=== PATIENT | female | born 1945 | race Caucasian/White ===

== ENCOUNTER 2018-10-26 13:31 | Outpatient (CLI) | payer MEDICARE, BC | END 2018-10-26 13:32 | disposition short-term general hospital (02) | LOC: EMS 13:31 | PROVIDERS: ATTEND Surgery | DX: R07.9 Chest pain, unspecified (principal); R06.02 Shortness of breath; R42 Dizziness and giddiness; R61 Generalized hyperhidrosis | CPT/HCPCS: A0425; A0427 ==

== ENCOUNTER 2019-01-10 09:24 | Outpatient (CLI) | payer MEDICARE, BC ==
[2019-01-10 10:57] LABS: ALBUMIN 3.9 g/dL (3.2-5.5); ALKALINE PHOSPHATASE 55 IU/L (42-121); ALT ALANINE AMINOTRANSFERASE 15 IU/L (10-60); AST ASPARTATE AMINOTRANSFERASE 20 IU/L (10-42); BILIRUBIN,TOTAL 0.5 mg/dL (0.2-1.0); BUN - BLOOD UREA NITROGEN 17 mg/dL (6-20); CALCIUM 9.4 mg/dL (8.5-10.3); CARBON DIOXIDE - CO2 26 mmol/L (21-32); CHLORIDE 105 mmol/L (101-111); CHOL/HDL RATIO 5.1 (<4.4); CHOLESTEROL 182 mg/dL; CREATININE 0.7 mg/dL (0.4-1.0); GFR - MDRD 82 (>89); GLUCOSE 182 mg/dL (70-100); HDL CHOLESTEROL 36 mg/dL; LDL CHOLESTEROL,CALCULATED 109 mg/dL; MAGNESIUM 1.9 mg/dL (1.7-2.8); SODIUM 143 mmol/L (135-145); TOTAL PROTEIN 7.7 g/dL (6.7-8.2); VLDL CHOLESTEROL 37 mg/dL
[2019-01-10 10:58] LABS: BASOPHILS # (AUTO) 0.1 10^3/uL (0.0-0.1); BASOPHILS % (AUTO) 0.7 %; EOSINOPHILS # (AUTO) 0.1 10^3/uL (0.0-0.7); EOSINOPHILS % (AUTO) 1.3 %; HGB - HEMOGLOBIN 14.5 g/dL (12.0-16.0); LYMPHOCYTES # (AUTO) 1.6 10^3/uL (1.5-3.5); MEAN CORPUSCULAR HEMOGLOBIN 29.6 pg (27.0-31.0); MEAN CORPUSCULAR HGB CONC 33.3 g/dL (32.0-36.0); MEAN PLATELET VOLUME 10.3 fL (7.9-10.8); MONOCYTES # (AUTO) 0.6 10^3/uL (0.0-1.0); MONOCYTES % (AUTO) 5.9 %; NEUTROPHILS # (AUTO) 7.5 10^3/uL (1.5-6.6); NEUTROPHILS % (AUTO) 75.8 %; PLT - PLATELET COUNT 284 10^3/uL (130-450); RED CELL DISTRIBUTION WIDTH 13.7 % (12.0-15.0); WHITE BLOOD COUNT 9.9 x10^3/uL (4.8-10.8)
[2019-01-10 11:24] LABS: HB2 TOTAL 15.7 g/dL; HEMOGLOBIN A1C 0.86 g/dL; HEMOGLOBIN A1C % 7.2 % (4.6-6.2)
== END 2019-01-10 09:25 | disposition home or self-care (01) ==
LOC: LAB 09:24
PROVIDERS: ATTEND Family Medicine
DX: E11.65 Type 2 diabetes mellitus with hyperglycemia (principal); E66.9 Obesity, unspecified; I10 Essential (primary) hypertension; K21.0 Gastro-esophageal reflux disease with esophagitis; N20.0 Calculus of kidney
CPT/HCPCS: 36415; 80053; 80061; 83036; 83721; 83735; 85025

== ENCOUNTER 2019-02-10 15:17 | Outpatient (CLI) | payer MEDICARE, BC ==
--- NOTE | 2019-02-11 13:53 | XRAY Report ---
Reason: ESSENTIAL PRIMARY HYPERTENSION, ACUTE SINUSITIS Procedure Date: 02/10/2019 Accession Number: [id number] / [id number] Procedure: XR - Chest 2 View X-Ray CPT Code: 76816 Final Report FULL RESULT: EXAM: CHEST RADIOGRAPHY EXAM DATE: 02/10/2019 03:27 PM. CLINICAL HISTORY: ESSENTIAL PRIMARY HYPERTENSION, ACUTE SINUSITIS. COMPARISON: CHEST 2 VIEW PA/LAT 11/18/2013 3:13 AM. TECHNIQUE: 2 views. FINDINGS: Lungs/Pleura: No focal opacities evident. No pleural effusion. No pneumothorax. Normal volumes. Mediastinum: Heart and mediastinal contours are unremarkable. Other: None. IMPRESSION: Normal 2-view chest radiography. RADIA
--- NOTE | 2019-02-11 13:59 | XRAY Report ---
Reason: ESSENTIAL (PRIMARY) HYPERTENSION,ACUTE SINUSITIS, Procedure Date: 02/10/2019 Accession Number: [id number] / [id number] Procedure: XR - Sinus Complete CPT Code: Final Report FULL RESULT: EXAM: SINUS RADIOGRAPHY EXAM DATE: 02/10/2019 03:52 PM. CLINICAL HISTORY: ESSENTIAL (PRIMARY) Hypertension, acute SINUSITIS. COMPARISONS: XR SINUSES COMPLETE MIN 3 VIEWS 08/23/2009 10:58 AM HEAD W/O 11/16/2013 8:24 PM. TECHNIQUE: 4 views. FINDINGS: Bones: Normal. No fractures or bone lesions. Sinuses: Normal. No opacities or fluid levels. Mastoid Air Cells: Clear. Other: Normal. No soft tissue swelling. IMPRESSION: Grossly negative sinus radiography. If there is continued clinical concern, consider CT. RADIA
== END 2019-02-10 15:18 | disposition home or self-care (01) ==
LOC: DI 15:17
PROVIDERS: ATTEND Family Medicine
DX: I10 Essential (primary) hypertension (principal); J01.90 Acute sinusitis, unspecified
CPT/HCPCS: 70220; 71046

== ENCOUNTER 2019-02-25 15:04 | Emergency (ER) | payer MEDICARE, BC ==
[2019-02-25 15:34] VITALS: BP 111/81
[2019-02-25] MEDS ORDERED: ACETAMINOPHEN 500 MG TABLET PO STA (15:42)
--- NOTE | 2019-02-25 16:19 | XRAY Report ---
Reason: Trauma Procedure Date: 02/25/2019 Accession Number: [id number] / [id number] Procedure: XR - Ankle 3 View LT CPT Code: Final Report FULL RESULT: EXAM: LEFT ANKLE RADIOGRAPHY EXAM DATE: 02/25/2019 03:50 PM. CLINICAL HISTORY: Trauma. Patient fell and heard audible pop. History of prior lateral malleolar fracture. COMPARISON: None. TECHNIQUE: 3 views. FINDINGS: Bones: Acute medial malleolar fracture with 3 mm displacement. Distal left fibular metaphyseal deformity related to old, healed fracture. Joints: Normal. No effusion. No subluxations. The ankle mortise is normally aligned. Soft Tissues: Diffuse soft tissue swelling extending into dorsal midfoot. IMPRESSION: 1. Acute medial malleolar fracture with 3 mm displacement. 2. Distal left fibular metaphyseal deformity related to old, healed fracture. 3. Diffuse left ankle soft tissue swelling extending into the dorsal midfoot. RADIA
--- NOTE | 2019-02-25 16:30 | ED Physician Documentation ---
PD HPI LOWER EXT INJURY - Stated complaint Stated Complaint: L ANKLE INJ - Chief complaint Chief Complaint: Ext Problem - History obtained from History obtained from: Patient - History of Present Illness PD HPI LOW EXT INJURY LOCATION: Left, Ankle Type of injury: Fall (slipped and fell with twisting of left ankle. Crum Lynne a pop as she fell. Pain and unable to bear weight since the injury.) Timing - onset: Today (just [employer]) Worsened by: Moving, Palpating Associated symptoms: Swelling. No: Weakness, Numbness Similar symptoms before: Diagnosis (had fracture lateral malleolus about a year ago or so, healed okay with out having any limp or limitation.) Recently seen: Not recently seen Review of Systems Skin: denies: Abrasion (s), Laceration (s) Neurologic: denies: Focal weakness, Numbness, Altered mental status, Headache, Head injury, LOC PD PAST MEDICAL HISTORY - Past Medical History Cardiovascular: Hypertension Respiratory: Sleep apnea, CPAP use Endocrine/Autoimmune: Type 1 diabetes GI: None : Kidney stones, Other HEENT: None Psych: None Musculoskeletal: None Derm: None - Past Surgical History Past Surgical History: Yes /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: Hysterectomy HEENT: Tonsil/Adenoidectomy - Present Medications Home Medications: Ambulatory Orders Medication Instructions Recorded Confirmed Azilsartan Medoxomil [Edarbi] 80 mg PO DAILY 11/15/13 11/10/15 Metformin HCl 500 mg PO BID 11/15/13 11/10/15 Oxycodone HCl/Acetaminophen 1 - 2 each PO Q6H PRN #15 tablet 11/15/13 11/10/15 [Percocet 5-325 mg Tablet] Potassium Citrate [Urocit-K] 10 meq PO BID 11/15/13 11/10/15 Saxagliptin HCl [Onglyza] 5 mg PO DAILY 11/15/13 11/10/15 Tamsulosin [Flomax] 0.4 mg PO DAILY #7 capsule 11/10/15 levoFLOXacin [Levaquin] 25 mg 11/10/15 oxyCODONE/ACET 5/325 [Percocet 5 1 - 2 tab PO Q4-6H PRN #20 tablet 11/10/15 mg/325 mg] Hydrocodone/Acetaminophen 1 - 2 each PO Q6H PRN #20 tablet 02/25/19 [Hydrocodon-Acetaminophen 5-325] Naproxen 500 mg PO BID #20 tablet 02/25/19 - Allergies Allergies/Adverse Reactions: Allergies Allergy/AdvReac Type Severity Reaction Status Date / Time No Known Drug Allergies Allergy Verified 11/10/15 07:57 - Social History Does the pt smoke?: No Smoking Status: Former smoker Does the pt drink ETOH?: No Does the pt have substance abuse?: No - Immunizations Immunizations are current?: Yes PD ED PE NORMAL - Vitals Vital signs reviewed: Yes - General General: Alert and oriented X 3, No acute distress, Well developed/nourished - HEENT HEENT: Atraumatic - Neck Neck: No bony TTP - Derm Derm: Normal color, Warm and dry - Extremities Extremities: Other (left ankle with tenderness and some swelling both medial and laterally. Achilles is intact. Tender diffusely around ankle. Good color and cap refill in toes. ) - Neuro Neuro: Alert and oriented X 3, No motor deficit, Normal speech Results - Vitals Vitals: Vital Signs - 24 hr 02/25/19 15:30 Temperature 36.7 C Heart Rate 89 Respiratory 18 Rate Blood Pressure 111/81 H O2 Saturation 96 Oxygen O2 Source [Without Activity] Room air O2 Source Room air - Rads (name of study) left ankle Radiology: Prelim report reviewed, See rad report (fracture medial malleolus. Prior fracture laterally noted healed. ) PD MEDICAL DECISION MAKING - ED course Complexity details: reviewed results, considered differential (has medial fracture and apparent healed lateral fib fracture. Is tender around whole ankle. Slight wiggle with stress testing, suggests disruption lateral ligaments. ), d/w patient ED course: she saw Ortho in [place] for other ankle fracture, so she is encouraged to follow up with him. Departure - Departure Disposition: 01 Home, Self Care Clinical Impression: Fractured medial malleolus Qualifiers: Encounter type: initial encounter Fracture type: closed Fracture alignment: nondisplaced Laterality: left Qualified Code(s): S82.55XA - Nondisplaced fracture of medial malleolus of left tibia, initial encounter for closed fracture Condition: Stable Record reviewed to determine appropriate education?: Yes Instructions: ED Fx Ankle General Follow-Up: Bill Montanez MD [Physician No Access] - Prescriptions: Hydrocodone/Acetaminophen [Hydrocodon-Acetaminophen 5-325] 1 - 2 each PO Q6H PRN #20 tablet PRN Reason: pain Naproxen 500 mg PO BID #20 tablet Comments: We will do no weightbearing with the ankle fracture. Use crutches or knee scooter to be off of the foot. Have the boot orthosis on all the time as you would for cast. (He can remove it for changing socks or cleaning the skin briefly). Elevate rest and ice the ankle often over the next several days to minimize swelling. Use some anti-inflammatories such as naproxen or ibuprofen 2-3 times a day. To that add Tylenol or hydrocodone as needed for pain. Call Dr. Montanez's office tomorrow for follow-up on this ankle fracture. They likely will give you an appointment for early next week and that timeframe is fine. Your ankle might need surgery to stabilize the loose piece (a pin or screw). Often they will allow the swelling to go down and do the surgery in a week or more after the injury so the follow-up time is adequate. Discharge Date/Time: 02/25/19 17:18
[2019-02-25] MEDS ORDERED: IBUPROFEN 600 MG TABLET PO STA (16:51)
== END 2019-02-25 17:18 | disposition home or self-care (01) ==
LOC: ED 15:04
DX: S82.55XA Nondisplaced fracture of medial malleolus of left tibia, initial encounter for closed fracture (principal); W01.0XXA Fall on same level from slipping, tripping and stumbling without subsequent striking against object, initial encounter; I10 Essential (primary) hypertension; E10.9 Type 1 diabetes mellitus without complications; Z87.891 Personal history of nicotine dependence
CPT/HCPCS: 73610; 99283; 99284; A9270

== ENCOUNTER 2020-11-20 15:12 | Outpatient (CLI) | payer MEDICARE, BC ==
--- NOTE | 2020-11-20 17:09 | XRAY Report ---
PROCEDURE: Lumbar Spine 2 View INDICATIONS: BACK PAIN TECHNIQUE: 2 views of the lumbar spine were acquired. COMPARISON: 02/28/2013 and KUB dated 11/10/2015. Chest radiograph dated 02/10/2019. FINDINGS: Bones: 5 [id number] vertebrae are present. Age indeterminant anterior wedge compression deformi ty involving L1 vertebral body is noted with up to 25% loss of L1 vertebral body height anteriorly. M inimal retrolisthesis of L2 on L3 and grade 1 anterolisthesis of L3 on L4 and L4 on L5 is seen. Degen erative disc disease and bilateral facet arthrosis throughout lumbar spine is seen more prominent at L4-5 and L5-S1 levels. No suspicious bony lesions. Soft tissues: Overlying bowel gas pattern is normal. No suspicious soft tissue calcifications. IMPRESSION: 1. Age-indeterminate indeterminant anterior wedge compression deformity at L1 level new since 2019 st udy with up to 25% loss of L1 vertebral body height anteriorly. 2. Spondylolisthesis at L2-3 through L4-5 levels as described above. Degenerative disc disease throug hout lumbar spine more prominent at L4-5 and L5-S1 levels. Reviewed by: Michoacano Quiroz MD on 11/20/2020 5:08 PM PDT Approved by: Michoacano Quiroz MD on 11/20/2020 5:08 PM PDT Station ID: [id number]
--- NOTE | 2020-11-20 17:10 | XRAY Report ---
PROCEDURE: Chest 2 View X-Ray INDICATIONS: HTN TECHNIQUE: 2 view(s) of the chest. COMPARISON: None. FINDINGS: Surgical changes and devices: None. Lungs and pleura: No pleural effusions or pneumothorax. Lungs are clear. Mediastinum: Mildly tortuous thoracic aorta is seen. Heart size is enlarged. Bones and chest wall: No suspicious bony abnormalities. Soft tissues appear unremarkable. IMPRESSION: Mild cardiomegaly and mildly tortuous thoracic aorta. No acute cardiopulmonary pathology . Reviewed by: Michoaacno Quiroz MD on 11/20/2020 5:08 PM PDT Approved by: Michoacano Quiroz MD on 11/20/2020 5:08 PM PDT Station ID: [id number]
== END 2020-11-20 15:13 | disposition home or self-care (01) ==
LOC: DI 15:12
PROVIDERS: ATTEND Family Medicine
DX: M54.5 Low back pain (principal); M43.16 Spondylolisthesis, lumbar region; M51.36 Other intervertebral disc degeneration, lumbar region; M48.56XA Collapsed vertebra, not elsewhere classified, lumbar region, initial encounter for fracture; I10 Essential (primary) hypertension; Q25.46 Tortuous aortic arch

== ENCOUNTER 2021-06-25 13:35 | Outpatient (CLI) | payer MEDICARE, BC ==
[2021-06-25 13:48] LABS: HCT - HEMATOCRIT 43.4 % (37.0-47.0); HGB - HEMOGLOBIN 14.7 g/dL (12.0-16.0); MEAN CORPUSCULAR HEMOGLOBIN 29.6 pg (27.0-31.0); MEAN CORPUSCULAR HGB CONC 33.9 g/dL (32.0-36.0); MEAN CORPUSCULAR VOLUME 87.5 fL (81.0-99.0); MEAN PLATELET VOLUME 9.6 fL (7.9-10.8); RED BLOOD COUNT 4.96 10^6/uL (4.20-5.40); RED CELL DISTRIBUTION WIDTH 13.6 % (12.0-15.0)
[2021-06-25 14:04] LABS: CREATININE 0.8 mg/dL (0.4-1.0)
== END 2021-06-25 13:36 | disposition home or self-care (01) ==
LOC: LAB 13:35
PROVIDERS: ATTEND Internal Medicine
DX: I48.0 Paroxysmal atrial fibrillation (principal)
CPT/HCPCS: 36415; 82565; 85027

== ENCOUNTER 2021-07-05 11:45 | Outpatient (CLI) | payer MEDICARE, BC ==
[2021-07-05 12:14] LABS: BILIRUBIN,URINE NEGATIVE (NEGATIVE); GLUCOSE, URINE (UA) NEGATIVE (NEGATIVE); KETONES,URINE (UA) NEGATIVE (NEGATIVE); LEUKOCYTE ESTERASE, URINE SMALL (NEGATIVE); NITRITE,URINE POSITIVE (NEGATIVE); OCCULT BLOOD,URINE SMALL (NEGATIVE); PH,URINE 6.5 PH (5.0-7.5); PROTEIN,URINE 100 mg/dL (NEGATIVE); UROBILINOGEN,URINE 0.2 (NORMAL) E.U./dL (NORMAL)
[2021-07-05 12:16] LABS: CLARITY,URINE CLOUDY (CLEAR)
[2021-07-05 12:30] LABS: BACTERIA,URINE Moderate /HPF (None Seen); RBC,URINE 0-5 /HPF (0-5); SQUAMOUS EPITHELIAL CELL,UR FEW Squamous (<= Few); WBC CLUMPS,URINE PRESENT; WBC,URINE >25 /HPF (0-5)
== END 2021-07-05 11:46 | disposition home or self-care (01) ==
LOC: LAB 11:45
PROVIDERS: ATTEND Family Medicine
DX: N39.0 Urinary tract infection, site not specified (principal); R30.0 Dysuria
CPT/HCPCS: 81001; 87077; 87086; 87181

== ENCOUNTER 2021-09-05 11:36 | Outpatient (CLI) | payer MEDICARE, BC ==
[2021-09-05 11:52] LABS: BILIRUBIN,URINE NEGATIVE (NEGATIVE); GLUCOSE, URINE (UA) NEGATIVE (NEGATIVE); KETONES,URINE (UA) NEGATIVE (NEGATIVE); LEUKOCYTE ESTERASE, URINE NEGATIVE (NEGATIVE); NITRITE,URINE NEGATIVE (NEGATIVE); OCCULT BLOOD,URINE TRACE-INTA (NEGATIVE); PROTEIN,URINE NEGATIVE (NEGATIVE); UROBILINOGEN,URINE 0.2 (NORMAL) E.U./dL (NORMAL)
[2021-09-05 11:58] LABS: CLARITY,URINE CLEAR (CLEAR)
[2021-09-05 12:31] LABS: BACTERIA,URINE Few /HPF (None Seen); CASTS, URINE 0-2 Hyaline Casts /LPF; RBC,URINE None Seen /HPF (0-5); SQUAMOUS EPITHELIAL CELL,UR FEW Squamous (<= Few); STARCH,URINE PRESENT; WBC,URINE 0-3 /HPF (0-5)
== END 2021-09-05 11:37 | disposition home or self-care (01) ==
LOC: LAB 11:36
PROVIDERS: ATTEND Family Medicine
DX: N34.0 Urethral abscess (principal); R30.0 Dysuria
CPT/HCPCS: 81001; 87086

== ENCOUNTER 2021-10-03 12:53 | Outpatient (CLI) | payer MEDICARE, BC ==
[2021-10-03 13:16] LABS: BASOPHILS % (AUTO) 0.4 %; EOSINOPHILS % (AUTO) 0.4 %; HCT - HEMATOCRIT 42.9 % (37.0-47.0); HGB - HEMOGLOBIN 14.9 g/dL (12.0-16.0); LYMPHOCYTES # (AUTO) 1.9 10^3/uL (1.5-3.5); LYMPHOCYTES % (AUTO) 19.4 %; MEAN CORPUSCULAR HEMOGLOBIN 29.9 pg (27.0-31.0); MEAN CORPUSCULAR HGB CONC 34.7 g/dL (32.0-36.0); MEAN CORPUSCULAR VOLUME 86.1 fL (81.0-99.0); MEAN PLATELET VOLUME 9.8 fL (7.9-10.8); MONOCYTES # (AUTO) 0.6 10^3/uL (0.0-1.0); MONOCYTES % (AUTO) 5.8 %; NEUTROPHILS # (AUTO) 7.3 10^3/uL (1.5-6.6); NEUTROPHILS % (AUTO) 73.8 %; PLT - PLATELET COUNT 252 10^3/uL (130-450); RED BLOOD COUNT 4.98 10^6/uL (4.20-5.40); RED CELL DISTRIBUTION WIDTH 13.8 % (12.0-15.0)
[2021-10-03 13:32] LABS: ALBUMIN 4.1 g/dL (3.2-5.5); ALBUMIN/GLOBULIN RATIO 1.1 (1.0-2.2); ALKALINE PHOSPHATASE 48 IU/L (42-121); ALT ALANINE AMINOTRANSFERASE 18 IU/L (10-60); AST ASPARTATE AMINOTRANSFERASE 19 IU/L (10-42); BILIRUBIN,TOTAL 0.5 mg/dL (0.2-1.0); BUN - BLOOD UREA NITROGEN 19 mg/dL (6-20); CARBON DIOXIDE - CO2 27 mmol/L (21-32); CHLORIDE 103 mmol/L (101-111); CHOLESTEROL 170 mg/dL; CREATININE 0.9 mg/dL (0.4-1.0); GFR - MDRD 61 (>89); GLUCOSE 150 mg/dL (70-100); HDL CHOLESTEROL 42 mg/dL; LDL CHOLESTEROL,CALCULATED 98 mg/dL; LDL/HDL RATIO 2.3 (<4.4); POTASSIUM 3.9 mmol/L (3.5-5.0); SODIUM 142 mmol/L (135-145); TOTAL PROTEIN 7.9 g/dL (6.7-8.2); TRIGLYCERIDES 151 mg/dL; VLDL CHOLESTEROL 30 mg/dL
[2021-10-03 13:40] LABS: T4 (THYROXINE) 8.29 ug/dL (6.09-12.23)
[2021-10-03 13:43] LABS: THYROID STIMULATING HORMONE 0.82 uIU/mL (0.34-5.60)
== END 2021-10-03 12:54 | disposition home or self-care (01) ==
LOC: LAB 12:53
PROVIDERS: ATTEND Family Medicine
DX: I10 Essential (primary) hypertension (principal); E11.65 Type 2 diabetes mellitus with hyperglycemia; F32.1 Major depressive disorder, single episode, moderate; I25.10 Atherosclerotic heart disease of native coronary artery without angina pectoris; Z79.899 Other long term (current) drug therapy
CPT/HCPCS: 36415; 80053; 80061; 82306; 82607; 83721; 84436; 84443; 85025

== ENCOUNTER 2021-12-17 09:18 | Emergency (ER) | payer MEDICARE, BC ==
--- OUTSIDE RECORDS SUMMARY | 2021-12-17 09:39 | EXTERNAL MEDICAL SUMMARY RPT | Continuity of Care Document ---
:1945 Author Organization [facility] Address [address] [place] [address] Phone Allergies No information. Encounters No information. Functional Status No information. Immunizations No information. Medications No information. Problems No information. Procedures No information. Results/Labs test date author facility value unit interpret ation Result panel 1 (unknown) (no (unknown) (unknown) (no value) (units (unk nown) date) unknown) (unknown) (no (unknown) (unknown) [address] [place] [address] (units (unknown) date) unknown) (unknown) (no (unknown) (unknown) [place], [place] (units ( unknown) date) [id number] unknown) (unknown) (no (unknown) (unknown) [facility] (units (unknown) date) unknown) (unknown) (no (unknown) (unknown) Signed (units (unkno wn) date) unknown) (unknown) (no (unknown) (unknown) Ultrasound (units (unk nown) date) Report unknown) (unknown) (no (unknown) (unknown) (no value) (units (unk nown) date) unknown) (unknown) (no (unknown) (unknown) 10/16/21 (units (unkno wn) date) unknown) (unknown) (no (unknown) (unknown) Approved by: (units (u nknown) date) evita Chaudhari M.D. on 10/16/2021 at 16:55 (unknown) (no (unknown) (unknown) Bilateral simple (units (unknown) date) renal cysts unknown) without hydronephrosis (unknown) (no (unknown) (unknown) Bladder: (units (unkno wn) date) Pre-void bladder unknown) volume is 94 mL. Post-void residual is 74 mL. Pre- (unknown) (no (unknown) (unknown) COMPARISON: (units (un known) date) None. unknown) (unknown) (no (unknown) (unknown) FINDINGS: (units (unkn own) date) unknown) (unknown) (no (unknown) (unknown) IMPRESSION: (units (un known) date) unknown) (unknown) (no (unknown) (unknown) INDICATIONS: (units (u nknown) date) OVERACTIVE unknown) BLADDER/NEPHROLIT HIASIS (unknown) (no (unknown) (unknown) Kidneys: (units (unkno wn) date) Kidneys are unknown) normal in size. Right kidney measures 13.0 cm long; left (unknown) (no (unknown) (unknown) Miscellaneous: (units (unknown) date) No free pelvic unknown) fluid. (unknown) (no (unknown) (unknown) Nonobstructive (units (unknown) date) left renal unknown) calculus, 1.4 cm (unknown) (no (unknown) (unknown) On the left, (units (u nknown) date) there is a 2.0 cm unknown) simple cyst as well as a 1.5 cm simple cyst. (unknown) (no (unknown) (unknown) On the right, (units ( unknown) date) there is a simple unknown) cyst measuring 1.2 x 1.1 cm of the lower pole. (unknown) (no (unknown) (unknown) Real-time (units (unkn own) date) scanning was unknown) performed of the kidneys and bladder, with image (unknown) (no (unknown) (unknown) TECHNIQUE: (units (unk nown) date) unknown) (unknown) (no (unknown) (unknown) gravity between (units (unknown) date) ureteral and unknown) bladder urine). (unknown) (no (unknown) (unknown) images (units (unkno wn) date) demonstrate no unknown) intraluminal masses or stones. On pre-void images, (unknown) (no (unknown) (unknown) measures 13.0 cm (units (unknown) date) long. Right unknown) renal cortical thickness is 2.1 cm; left renal (unknown) (no (unknown) (unknown) not be (units (unkno wn) date) detectable in up unknown) to 25% of cases due to insufficient differences in (unknown) (no (unknown) (unknown) obstructive (units (un known) date) calculus noted in unknown) the inferior pole left kidney measuring 1.4 x 1.2 (unknown) (no (unknown) (unknown) thickness is 2.2 (units (unknown) date) cm. unknown) (unknown) (no (unknown) (unknown) ureteral jets (units ( unknown) date) are noted with unknown) color Doppler interrogation. (Of note, ureteral (unknown) (no (unknown) (unknown) [id number] (units (unkn own) date) unknown) (unknown) (no (unknown) (unknown) Accession (units (unkn own) date) Number: unknown) [id number] (unknown) (no (unknown) (unknown) Age/Sex: 76 / F (units (unknown) date) Date of unknown) Service: (unknown) (no (unknown) (unknown) : 1945 (units (unknown) date) Acct:[id number] unknown) (unknown) (no (unknown) (unknown) Loc: [place] (units (unkno wn) date) unknown) (unknown) (no (unknown) (unknown) Non (units (unkno wn) date) unknown) (unknown) (no (unknown) (unknown) Ordering (units (unkno wn) date) Provider: unknown) Annika West MD (unknown) (no (unknown) (unknown) PROCEDURE: US (units (unknown) date) RENAL COMPLETE unknown) (unknown) (no (unknown) (unknown) Patient: (units (unkno wn) date) Trinidad Campos E unknown) MR#: [id number] (unknown) (no (unknown) (unknown) Procedure: US (units ( unknown) date) renal complete unknown) (unknown) (no (unknown) (unknown) bilateral (units (unkn own) date) unknown) (unknown) (no (unknown) (unknown) cm (units (unkno wn) date) unknown) (unknown) (no (unknown) (unknown) cortical (units (unkno wn) date) unknown) (unknown) (no (unknown) (unknown) documentation. (units (unknown) date) unknown) (unknown) (no (unknown) (unknown) jets may (units (unkno wn) date) unknown) (unknown) (no (unknown) (unknown) kidney (units (unkno wn) date) unknown) (unknown) (no (unknown) (unknown) specific (units (unkno wn) date) unknown) (unknown) (no (unknown) (unknown) void (units (unkno wn) date) unknown) Social History No information. Vital Signs No information.
--- NOTE | 2021-12-17 09:53 | ED Physician Documentation ---
PD HPI DYSPNEA - Stated complaint Stated Complaint: SOA - Chief complaint Chief Complaint: Resp - History obtained from History obtained from: Patient - History of Present Illness Timing - onset: How many weeks ago (2-3 weeks of cough, dyspnea, and easy fatigue. No leg edema. Does have some orthopnea. Nonproductive cough. Saw PMD and got Rx Keflex and codeine cough medication.) Timing - onset during: Light activity. No: Eating Timing - duration: Weeks Timing - details: Gradual onset, Still present Inciting event(s): No: URI Improved by: Rest. No: Inhaler/neb (given budesonie and salmeterol inhaler and pt not feeling immediate relief with this.) Worsened by: Exertion, Laying flat, Coughing Associated symptoms: Cough. No: Fever, Wheezing, Chest pain / discomfort, Bilateral edema Similar symptoms before: Has not had sx before Recently seen: Clinic Review of Systems Constitutional: denies: Fever, Chills Respiratory: reports: Dyspnea, Cough. denies: Wheezing GI: denies: Abdominal Pain, Nausea, Vomiting Neurologic: reports: Generalized weakness. 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 HEENT: Tonsil/Adenoidectomy - Present Medications Home Medications: Ambulatory Orders Medication Instructions Recorded Confirmed Albuterol Sulf [Ventolin Hfa 2 puffs INH QID 10 Days #1 gm 12/17/21 Inhaler] Apixaban [Eliquis] 5 mg PO DAILY 12/17/21 12/17/21 Benzonatate [Tessalon] 100 mg PO TID PRN #15 cap 12/17/21 Dulaglutide [Trulicity] 1.5 mg SQ DAILY 12/17/21 12/17/21 Escitalopram Oxalate 10 mg PO DAILY 12/17/21 12/17/21 Fesoterodine Fumarate [Toviaz] 8 mg PO DAILY 12/17/21 12/17/21 Furosemide [Lasix] 20 mg PO DAILY 10 Days #10 tablet 12/17/21 Insulin Glargine,Hum.rec.anlog 1 applic SQ DAILY 12/17/21 12/17/21 [Nessa Tam] Losartan Potassium 25 mg PO DAILY 12/17/21 12/17/21 Magnesium Oxide [Magnesium] 400 mg PO DAILY 12/17/21 12/17/21 Metoprolol Succinate [Toprol Xl] 50 mg PO DAILY 12/17/21 12/17/21 Pravastatin Sodium 20 mg PO DAILY 12/17/21 12/17/21 Saxagliptin HCl [Onglyza] 5 mg PO DAILY 12/17/21 12/17/21 Zolpidem Tartrate [Ambien] 10 mg PO HS 12/17/21 12/17/21 dexAMETHasone [Decadron] 4 mg PO DAILY #5 tablet 12/17/21 - Allergies Allergies/Adverse Reactions: Allergies Allergy/AdvReac Type Severity Reaction Status Date / Time ciprofloxacin [From Cipro] AdvReac Unknown Verified 12/17/21 09:29 - Social History Does the pt smoke?: No Smoking Status: Former smoker Does the pt drink ETOH?: No Does the pt have substance abuse?: No - Immunizations Immunizations are current?: Yes PD ED PE NORMAL - Vitals Vital signs reviewed: Yes - General General: Alert and oriented X 3, No acute distress, Well developed/nourished - HEENT HEENT: Pharynx benign - Neck Neck: Supple, no meningeal sign, No adenopathy - Cardiac Cardiac: RRR, No murmur - Respiratory Respiratory: No: Clear bilaterally (mild ) - Abdomen Abdomen: Soft, Non tender - Derm Derm: Normal color, Warm and dry - Neuro Neuro: Alert and oriented X 3, No motor deficit, Normal speech Results - Vitals Vitals: Vital Signs - 24 hr 12/17/21 12/17/21 12/17/21 11:00 11:28 12:51 Heart Rate 88 99 66 Respiratory 20 16 13 Rate Blood Pressure 153/98 H 145/75 H O2 Saturation 92 99 Oxygen O2 Source [Without Activity] Room air O2 Source Room air - Labs Labs: Laboratory Tests 12/17/21 12/17/21 12/17/21 11:14 11:14 11:14 WBC 9.2 RBC 4.71 Hgb 13.7 Hct 41.0 MCV 87.0 MCH 29.1 MCHC 33.4 RDW 13.4 Plt Count 286 MPV 9.6 Neut # (Auto) 7.1 H Lymph # (Auto) 1.7 [place] # (Auto) 0.4 Eos # (Auto) 0.0 Baso # (Auto) 0.0 Absolute Nucleated RBC 0.00 Nucleated RBC % 0.0 Sodium 138 Potassium 4.0 Chloride 106 Carbon Dioxide 23 Anion Gap 9.0 BUN 19 Creatinine 0.7 Estimated GFR (MDRD) 81 L Glucose 180 H Calcium 9.3 Total Bilirubin 0.6 AST 22 ALT 26 Alkaline Phosphatase 46 Troponin I High Sens 24.1 H* B-Natriuretic Peptide Total Protein 7.6 Albumin 4.1 Globulin 3.5 Albumin/Globulin Ratio 1.2 Lipase 22 12/17/21 11:14 WBC RBC Hgb Hct MCV MCH MCHC RDW Plt Count MPV Neut # (Auto) Lymph # (Auto) [place] # (Auto) Eos # (Auto) Baso # (Auto) Absolute Nucleated RBC Nucleated RBC % Sodium Potassium Chloride Carbon Dioxide Anion Gap BUN Creatinine Estimated GFR (MDRD) Glucose Calcium Total Bilirubin AST ALT Alkaline Phosphatase Troponin I High Sens B-Natriuretic Peptide 1814 H Total Protein Albumin Globulin Albumin/Globulin Ratio Lipase PD MEDICAL DECISION MAKING - ED course Complexity details: reviewed results (CXR appears vascular congestion and has elevated BNP but no leg edema. ECHO might be useful [facility]. Would want to have PMD follow up. ), considered differential, d/w patient Departure - Departure Disposition: 01 Home, Self Care Clinical Impression: Dyspnea Qualifiers: Dyspnea type: shortness of breath Qualified Code(s): R06.02 - Shortness of breath Cough Qualifiers: Cough type: acute Qualified Code(s): R05.1 - Acute cough Condition: Stable Record reviewed to determine appropriate education?: Yes Instructions: ED Dyspnea Shortness of Breath Follow-Up: Sebastián Mathew MD [Primary Care Provider] - Javed Dang MD [Physician No Access] - Prescriptions: dexAMETHasone [Decadron] 4 mg PO DAILY #5 tablet Furosemide [Lasix] 20 mg PO DAILY 10 Days #10 tablet Benzonatate [Tessalon] 100 mg PO TID PRN #15 cap PRN Reason: Cough Albuterol Sulf [Ventolin Hfa Inhaler] 2 puffs INH QID 10 Days #1 gm Comments: You seem to have some improvement with the inhaler medication. This is similar but more prompt onset than the other inhaler that had been given to you. You can continue the previous inhaler from your primary care as directed. I would add an albuterol inhaler 2 puffs 4 times daily for the next several days to week. We can also add a anti-inflammatory steroid to take daily for the next several d ays presuming some airway inflammation. You can add benzonatate/Tessalon if needed for cough. Your chest x-ray and blood tests are suggestive of some element of congestive heart failure as well. I would start you on Lasix diuretic 1 tablet daily for the next 5 days. I wrote a prescription for 10 days worth in case this wants to be extended. I would follow-up with your primary care later this week. I would also call your skein bander to arrange a follow-up appointment in the near future to see if they want to more evaluate or investigate the congestive failure. I sent your prescriptions to [facility] in [place]. Discharge Date/Time: 12/17/21 12:53
[2021-12-17] MEDS ORDERED: CHERRY SYRUP 10 ML UDC PO ONE (10:09)
[2021-12-17] MEDS ORDERED: ALBUTEROL NEB 2.5 MG/3 ML INH STA (10:09)
[2021-12-17] MEDS ORDERED: BENZONATATE 100 MG CAPSULE PO STA (10:09)
[2021-12-17] MEDS ORDERED: DEXAMETHASONE 10 MG/ML VIAL PO STA (10:09)
--- NOTE | 2021-12-17 10:57 | XRAY Report ---
PROCEDURE: Chest 1 View X-Ray INDICATIONS: cough and dyspnea for weeks TECHNIQUE: One view of the chest was acquired. COMPARISON: 11/27/2021 FINDINGS: Surgical changes and devices: None. Lungs and pleura: Heart size enlarged. Obscuration left hemidiaphragm with blunting of both costophr enic angles. Vascular calcification present in the aortic arch. Moderate vascular congestion. IMPRESSION: Cardiomegaly, moderate vascular congestion and left pleural effusion with bibasilar atelectasis and/o r infiltrate. Reviewed by: Wili Marino MD on 12/17/2021 9:55 AM MORGAN Approved by: Wili Marino MD on 12/17/2021 9:55 AM MORGAN Station ID: [id number]
[2021-12-17 11:22] LABS: BASOPHILS % (AUTO) 0.4 %; EOSINOPHILS % (AUTO) 0.3 %; HGB - HEMOGLOBIN 13.7 g/dL (12.0-16.0); LYMPHOCYTES # (AUTO) 1.7 10^3/uL (1.5-3.5); LYMPHOCYTES % (AUTO) 18.1 %; MEAN CORPUSCULAR HEMOGLOBIN 29.1 pg (27.0-31.0); MEAN CORPUSCULAR HGB CONC 33.4 g/dL (32.0-36.0); MEAN PLATELET VOLUME 9.6 fL (7.9-10.8); MONOCYTES # (AUTO) 0.4 10^3/uL (0.0-1.0); MONOCYTES % (AUTO) 4.3 %; NEUTROPHILS # (AUTO) 7.1 10^3/uL (1.5-6.6); NEUTROPHILS % (AUTO) 76.6 %; PLT - PLATELET COUNT 286 10^3/uL (130-450); RED BLOOD COUNT 4.71 10^6/uL (4.20-5.40); RED CELL DISTRIBUTION WIDTH 13.4 % (12.0-15.0); WHITE BLOOD COUNT 9.2 x10^3/uL (4.8-10.8)
[2021-12-17 11:36] LABS: ALBUMIN 4.1 g/dL (3.2-5.5); ALBUMIN/GLOBULIN RATIO 1.2 (1.0-2.2); BILIRUBIN,TOTAL 0.6 mg/dL (0.2-1.0); CALCIUM 9.3 mg/dL (8.5-10.3); CREATININE 0.7 mg/dL (0.4-1.0); TOTAL PROTEIN 7.6 g/dL (6.7-8.2)
[2021-12-17] MEDS ORDERED: FUROSEMIDE 20 MG TABLET PO STA (12:35)
[2021-12-17 12:53] VITALS: BP 145/75
== END 2021-12-17 12:53 | disposition home or self-care (01) ==
LOC: ED 09:18
DX: R06.02 Shortness of breath (principal); R05.1 Acute cough; I10 Essential (primary) hypertension; E10.9 Type 1 diabetes mellitus without complications; Z79.4 Long term (current) use of insulin
CPT/HCPCS: 36415; 71045; 80053; 83690; 83880; 84484; 85025; 94640; 94664; 99283; 99284; A9270

== ENCOUNTER 2021-12-23 09:20 | Emergency (ER) | payer MEDICARE, BC ==
--- OUTSIDE RECORDS SUMMARY | 2021-12-23 10:04 | EXTERNAL MEDICAL SUMMARY RPT | Continuity of Care Document ---
:1945 Author Organization [facility] Address [address] [place] [address] Phone Allergies No information. Encounters No information. Functional Status No information. Immunizations No information. Medications No information. Problems No information. Procedures No information. Results/Labs test date author facility value unit interpret ation Result panel 1 (unknown) (no (unknown) (unknown) (no value) (units (unk nown) date) unknown) (unknown) (no (unknown) (unknown) [address] [place] [address] (units (unknown) date) unknown) (unknown) (no (unknown) (unknown) [place], [place] (units ( unknown) date) [id number] unknown) (unknown) (no (unknown) (unknown) [facility] (units (unknown) date) unknown) (unknown) (no (unknown) [...] (Of note, ureteral (unknown) (no (unknown) (unknown) [id number] (units (unkn own) date) unknown) (unknown) (no (unknown) (unknown) Accession (units (unkn own) date) Number: unknown) [id number] (unknown) (no (unknown) (unknown) Age/Sex: 76 / F (units (unknown) date) Date of unknown) Service: (unknown) (no (unknown) (unknown) : 1945 (units (unknown) date) Acct:[id number] unknown) (unknown) (no (unknown) (unknown) Loc: [place] (units (unkno wn) date) unknown) (unknown) (no (unknown) (unknown) Non (units (unkno wn) date) unknown) (unknown) (no (unknown) (unknown) Ordering (units (unkno wn) date) Provider: unknown) Annika West MD (unknown) (no (unknown) (unknown) PROCEDURE: US (units (unknown) date) RENAL COMPLETE unknown) (unknown) (no (unknown) (unknown) Patient: (units (unkno wn) date) Trinidad Campos unknown) MR#: M (unknown) (no (unknown) (unknown) [...]
[2021-12-23] MEDS ORDERED: diazePAM 5 MG TABLET PO STA (10:22)
--- NOTE | 2021-12-23 11:25 | XRAY Report ---
PROCEDURE: Chest 1 View X-Ray INDICATIONS: chest pain TECHNIQUE: One view of the chest was acquired. COMPARISON: 12/21/2021 FINDINGS: Surgical changes and devices: None. Heart size is moderate vascular congestion and obscuration left hemidiaphragm and blunting left costo phrenic angle. Right pleural spaces clear. Osseous structures normal. Surgical clips in the right axi lla noted. IMPRESSION: Cardiomegaly, moderate vascular congestion and left pleural effusion with atelectasis. Reviewed by: Wili Marino MD on 12/23/2021 10:24 AM MORGAN Approved by: Wili Marino MD on 12/23/2021 10:24 AM MORGAN Station ID: [id number]
[2021-12-23] MEDS ORDERED: FUROSEMIDE 20 MG TABLET PO STA (11:31)
--- NOTE | 2021-12-23 12:07 | ED Physician Documentation ---
History of Present Illness - Stated complaint Stated Complaint: SOA - Chief complaint Chief Complaint: Resp - History obtained from History obtained from: Patient - Additonal information Additional information: The patient comes to the emergency department chief complaint of difficulty breathing and dry cough. The patient has been struggling with his CHF exacerbation recently and was started on Lasix. The patient states that after laying down all night, she woke up around 4:00 this morning and felt like she had a little harder time breathing. She does admit that this got better when she sat up. The patient denies any fevers or chills. No chest pain. She has been urinating quite a bit but still feels as though her legs are swollen. Review of Systems Ten Systems: 10 systems reviewed and negative Constitutional: reports: Reviewed and negative Eyes: reports: Reviewed and negative Ears: reports: Reviewed and negative Nose: reports: Reviewed and negative Throat: reports: Reviewed and negative Cardiac: reports: Reviewed and negative Respiratory: reports: Dyspnea GI: reports: Reviewed and negative : reports: Reviewed and negative Skin: reports: Reviewed and negative Musculoskeletal: reports: Reviewed and negative Neurologic: reports: Reviewed and negative Psychiatric: reports: Reviewed and negative Endocrine: reports: Reviewed and negative Immunocompromised: reports: Reviewed and negative PD PAST MEDICAL HISTORY - Past Medical History Cardiovascular: Hypertension, Other Respiratory: Sleep apnea, CPAP use Endocrine/Autoimmune: Type 1 diabetes GI: None : Kidney stones, Other HEENT: None Psych: None Musculoskeletal: None Derm: None - Past Surgical History 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 HEENT: Tonsil/Adenoidectomy - Present Medications Home Medications: Ambulatory Orders Medication Instructions Recorded Confirmed Apixaban [Eliquis] 5 mg PO DAILY 12/17/21 12/23/21 Benzonatate [Tessalon] 100 mg PO TID PRN #15 cap 12/17/21 12/23/21 Dulaglutide [Trulicity] 1.5 mg SQ DAILY 12/17/21 12/23/21 Escitalopram Oxalate 10 mg PO DAILY 12/17/21 12/23/21 Fesoterodine Fumarate [Toviaz] 8 mg PO DAILY 12/17/21 12/23/21 Furosemide [Lasix] 20 mg PO DAILY 10 Days #10 tablet 12/17/21 12/23/21 Insulin Glargine,Hum.rec.anlog 1 applic SQ DAILY 12/17/21 12/23/21 [Nessa Tam] Losartan Potassium 25 mg PO DAILY 12/17/21 12/23/21 Magnesium Oxide [Magnesium] 400 mg PO DAILY 12/17/21 12/23/21 Metoprolol Succinate [Toprol Xl] 50 mg PO DAILY 12/17/21 12/23/21 Pravastatin Sodium 20 mg PO DAILY 12/17/21 12/23/21 Saxagliptin HCl [Onglyza] 5 mg PO DAILY 12/17/21 12/23/21 Zolpidem Tartrate [Ambien] 10 mg PO HS 12/17/21 12/23/21 dexAMETHasone [Decadron] 4 mg PO DAILY #5 tablet 12/17/21 12/23/21 Albuterol Sulf [Ventolin Hfa 2 - 3 puffs INH Q4HR PRN #1 gm 12/21/21 12/23/21 Inhaler] Doxycycline Hyclate 100 mg PO BID 7 Days #14 cap 12/21/21 12/23/21 - Allergies Allergies/Adverse Reactions: Allergies Allergy/AdvReac Type Severity Reaction Status Date / Time ciprofloxacin [From Cipro] AdvReac Unknown Verified 12/21/21 09:15 - Social History Does the pt smoke?: No Smoking Status: Never smoker Does the pt drink ETOH?: No Does the pt have substance abuse?: No - Immunizations Immunizations are current?: Yes PD ED PE NORMAL - Vitals Vital signs reviewed: Yes - General General: Alert and oriented X 3, No acute distress, Well developed/nourished - HEENT HEENT: Atraumatic, PERRL, EOMI, Moist mucous membranes - Neck Neck: Supple, no meningeal sign - Cardiac Cardiac: RRR, No murmur, Strong equal pulses - Respiratory Respiratory: No respiratory distress, Clear bilaterally - Abdomen Abdomen: Soft, Non tender, Non distended - Derm Derm: Normal color, Warm and dry, No rash - Extremities Extremities: No deformity, No edema, Other (1+ pitting edema bilateral lower extremity) - Neuro Neuro: Alert and oriented X 3 - Psych Psych: Normal mood, Normal affect Results - Vitals Vitals: Oxygen O2 Source [Without Activity] Room air O2 Source Room air - EKG (time done) 1024 Rate: Rate (enter#) (99) Rhythm: NSR [place]: Normal Intervals: Normal [place] QRS: Normal Ischemia: Normal ST segments Compare to prior EKG: Old EKG unavailable Computer interpretation: Agree with computer - Labs Labs: Laboratory Tests 12/23/21 10:34 B-Natriuretic Peptide 2093 H - Rads (name of study) Chest x-ray Radiology: Final report received, EMP read indepedently, See rad report (Moderate pulmonary vascular congestion) PD MEDICAL DECISION MAKING - ED course Complexity details: reviewed results, re-evaluated patient, considered differential, d/w patient ED course: The patient was given a dose of Lasix in the emergency department and worked up with labs, EKG, and chest x-ray. Patient still showed some pulmonary vascular congestion, and I discussed with her that she needs more time on the Lasix. It does seem to be working as the patient does report improvement in her lower extremity edema. We have discussed home management of the symptoms as well as the usual indications for return. Departure - Departure Disposition: 01 Home, Self Care Clinical Impression: Congestive heart failure Qualifiers: Heart failure type: unspecified Heart failure chronicity: acute on chronic Qualified Code(s): I50.9 - Heart failure, unspecified Condition: Stable Instructions: ED CHF General Comments: Your lungs are clear and your oxygen levels look good. You do still have some signs of congestive heart failure on your x-ray, though the blood work for congestive heart failure is gradually improving. You should continue to take the water pill that you were prescribed and continue to pursue a follow-up with your primary doctor. Echocardiogram is not available today and you will need to talk to your doctor about getting this scheduled as an outpatient. There is no evidence whatsoever of any other lung pathology. As above, your oxygen saturation is high and normal, your lungs are clear, and your respiratory rate is also normal. You have been able to walk around in the emergency department and at this point, are stable for discharge. Discharge Date/Time: 12/23/21 12:18
[2021-12-23 12:10] VITALS: BP 133/74
== END 2021-12-23 12:18 | disposition home or self-care (01) ==
LOC: ED 09:20
DX: I11.0 Hypertensive heart disease with heart failure (principal); I50.9 Heart failure, unspecified; E10.9 Type 1 diabetes mellitus without complications; Z79.4 Long term (current) use of insulin
CPT/HCPCS: 36415; 71045; 83880; 93005; 99283; A9270

== ENCOUNTER 2022-02-05 12:39 | Outpatient (CLI) | payer MEDICARE, BC ==
--- NOTE | 2022-02-05 16:33 | XRAY Report ---
PROCEDURE: Chest 2 View X-Ray INDICATIONS: HEART FAILURE TECHNIQUE: 2 view(s) of the chest. COMPARISON: None. FINDINGS: Surgical changes and devices: None. Lungs and pleura: No pleural effusions or pneumothorax. Lungs are clear. Mediastinum: Mediastinal contours are normal. Heart size is heart size is enlarged. Bones and chest wall: No suspicious bony abnormalities. Soft tissues appear unremarkable. IMPRESSION: Cardiomegaly. No focal infiltrate, pleural effusion or pneumothorax. Reviewed by: Michoacano Quiroz MD on 02/05/2022 4:31 PM PDT Approved by: Michoacano Quiroz MD on 02/05/2022 4:31 PM PDT Station ID: [id number]
== END 2022-02-05 12:40 | disposition home or self-care (01) ==
LOC: DI 12:39
PROVIDERS: ATTEND Family Medicine
DX: I50.9 Heart failure, unspecified (principal); I51.7 Cardiomegaly

== ENCOUNTER 2022-02-22 12:35 | Outpatient (CLI) | payer MEDICARE, BC ==
[2022-02-22 12:54] LABS: BASOPHILS % (AUTO) 0.4 %; EOSINOPHILS # (AUTO) 0.1 10^3/uL (0.0-0.7); EOSINOPHILS % (AUTO) 0.6 %; HCT - HEMATOCRIT 39.9 % (37.0-47.0); LYMPHOCYTES # (AUTO) 1.4 10^3/uL (1.5-3.5); LYMPHOCYTES % (AUTO) 15.7 %; MEAN CORPUSCULAR HEMOGLOBIN 28.4 pg (27.0-31.0); MEAN CORPUSCULAR HGB CONC 32.6 g/dL (32.0-36.0); MEAN CORPUSCULAR VOLUME 87.1 fL (81.0-99.0); MEAN PLATELET VOLUME 10.2 fL (7.9-10.8); MONOCYTES # (AUTO) 0.5 10^3/uL (0.0-1.0); MONOCYTES % (AUTO) 5.3 %; NEUTROPHILS # (AUTO) 6.9 10^3/uL (1.5-6.6); NEUTROPHILS % (AUTO) 77.8 %; PLT - PLATELET COUNT 288 10^3/uL (130-450); RED BLOOD COUNT 4.58 10^6/uL (4.20-5.40); RED CELL DISTRIBUTION WIDTH 14.4 % (12.0-15.0); WHITE BLOOD COUNT 8.9 x10^3/uL (4.8-10.8)
[2022-02-22 13:15] LABS: ALBUMIN 3.9 g/dL (3.2-5.5); ALBUMIN/GLOBULIN RATIO 1.2 (1.0-2.2); ALKALINE PHOSPHATASE 47 IU/L (42-121); ALT ALANINE AMINOTRANSFERASE 27 IU/L (10-60); AST ASPARTATE AMINOTRANSFERASE 25 IU/L (10-42); BILIRUBIN,TOTAL 0.6 mg/dL (0.2-1.0); BUN - BLOOD UREA NITROGEN 23 mg/dL (6-20); CALCIUM 9.4 mg/dL (8.5-10.3); CARBON DIOXIDE - CO2 24 mmol/L (21-32); CHLORIDE 105 mmol/L (101-111); CHOL/HDL RATIO 4.3 (<4.4); CHOLESTEROL 156 mg/dL; CREATININE 0.9 mg/dL (0.4-1.0); GFR - MDRD 61 (>89); GLUCOSE 154 mg/dL (70-100); HDL CHOLESTEROL 36 mg/dL; LDL CHOLESTEROL,CALCULATED 104 mg/dL; LDL/HDL RATIO 2.9 (<4.4); POTASSIUM 3.7 mmol/L (3.5-5.0); SODIUM 142 mmol/L (135-145); TOTAL PROTEIN 7.2 g/dL (6.7-8.2); TRIGLYCERIDES 78 mg/dL; VLDL CHOLESTEROL 16 mg/dL
[2022-02-22 13:17] LABS: CRP - C-REACTIVE PROTEIN < 1.0 mg/dL (0-1.0)
[2022-02-22 13:54] LABS: RHEUMATOID FACTOR NEGATIVE (Negative)
--- NOTE | 2022-02-22 15:18 | XRAY Report ---
PROCEDURE: Chest 2 View X-Ray INDICATIONS: HEART DISEASE TECHNIQUE: 2 views of the chest were acquired. COMPARISON: 02/05/2022 FINDINGS: Surgical changes and devices: Right axillary clips, right lumpectomy. Lungs and pleura: Interval development of mild to moderate left pleural effusion and associated left basilar atelectasis. Mediastinum: Mediastinal contours are normal. Mild cardiomegaly. Bones and chest wall: No suspicious bony abnormalities. Soft tissues appear unremarkable. IMPRESSION: Interval development of mild to moderate left pleural effusion and associated left basilar atelectasi s. Reviewed by: Garcia Bella MD on 02/22/2022 3:17 PM PST Approved by: Garcia Bella MD on 02/22/2022 3:17 PM PST Station ID: [id number]
[2022-02-23 17:08] LABS: ANTI-DNA (DS) AB QN 1 IU/mL (0-9); CENTROMERE B ANTIBODIES <0.2 AI (0.0-0.9); CHROMATIN ANTIBODIES <0.2 AI (0.0-0.9); JO-1 AB <0.2 AI (0.0-0.9); RIBOSOMAL P ANTIBODIES <0.2 AI (0.0-0.9); RNP ANTIBODIES <0.2 AI (0.0-0.9); SCLERODERMA-70 ANTIBODIES <0.2 AI (0.0-0.9); SJOGREN'S ANTI-SS-A <0.2 AI (0.0-0.9); SJOGREN'S ANTI-SS-B <0.2 AI (0.0-0.9); SMITH ANTIBODIES <0.2 AI (0.0-0.9); SMITH/RNP ANTIBODIES <0.2 AI (0.0-0.9)
== END 2022-02-22 12:36 | disposition home or self-care (01) ==
LOC: DI 12:35
PROVIDERS: ATTEND Family Medicine
DX: J90 Pleural effusion, not elsewhere classified (principal); J98.11 Atelectasis; I25.10 Atherosclerotic heart disease of native coronary artery without angina pectoris; D05.00 Lobular carcinoma in situ of unspecified breast; E11.65 Type 2 diabetes mellitus with hyperglycemia; I10 Essential (primary) hypertension; M12.89 Other specific arthropathies, not elsewhere classified, multiple sites; E78.5 Hyperlipidemia, unspecified; Z79.899 Other long term (current) drug therapy; E66.9 Obesity, unspecified
CPT/HCPCS: 36415; 80053; 80061; 83516; 83721; 84443; 85025; 85651; 86140; 86225; 86235; 86430

== ENCOUNTER → 2022-03-15 | Outpatient (CLI) | payer MEDICARE, BC | END | disposition left against medical advice (07) | LOC: EMS 13:36 | DX: J18.9 Pneumonia, unspecified organism (principal) ==

== ENCOUNTER 2022-04-16 11:38 | Outpatient (CLI) | payer MEDICARE, BC ==
[2022-04-16 12:14] LABS: BASOPHILS % (AUTO) 0.4 %; EOSINOPHILS # (AUTO) 0.1 10^3/uL (0.0-0.7); EOSINOPHILS % (AUTO) 0.8 %; HCT - HEMATOCRIT 43.9 % (37.0-47.0); LYMPHOCYTES # (AUTO) 1.5 10^3/uL (1.5-3.5); LYMPHOCYTES % (AUTO) 17.2 %; MEAN CORPUSCULAR HEMOGLOBIN 28.2 pg (27.0-31.0); MEAN CORPUSCULAR HGB CONC 31.9 g/dL (32.0-36.0); MEAN CORPUSCULAR VOLUME 88.5 fL (81.0-99.0); MEAN PLATELET VOLUME 10.3 fL (7.9-10.8); MONOCYTES # (AUTO) 0.5 10^3/uL (0.0-1.0); MONOCYTES % (AUTO) 5.9 %; NEUTROPHILS # (AUTO) 6.7 10^3/uL (1.5-6.6); NEUTROPHILS % (AUTO) 75.4 %; PLT - PLATELET COUNT 255 10^3/uL (130-450); RED BLOOD COUNT 4.96 10^6/uL (4.20-5.40); RED CELL DISTRIBUTION WIDTH 13.5 % (12.0-15.0); WHITE BLOOD COUNT 8.9 x10^3/uL (4.8-10.8)
[2022-04-16 12:28] LABS: ALBUMIN 4.2 g/dL (3.2-5.5); ALBUMIN/GLOBULIN RATIO 1.2 (1.0-2.2); BILIRUBIN,TOTAL 0.8 mg/dL (0.2-1.0); CALCIUM 9.1 mg/dL (8.5-10.3); CREATININE 0.9 mg/dL (0.4-1.0); MAGNESIUM 1.9 mg/dL (1.7-2.8); TOTAL PROTEIN 7.7 g/dL (6.7-8.2)
[2022-04-16 12:34] LABS: ESTIMATED AVERAGE GLUCOSE 177 mg/dL (70-100); HEMOGLOBIN A1c% 7.8 % (4.27-6.07)
[2022-04-16 12:44] LABS: THYROID STIMULATING HORMONE 0.62 uIU/mL (0.34-5.60)
[2022-04-16 12:55] LABS: INR 1.3 (0.8-1.2); PT - PROTHROMBIN TIME 14.4 secs (9.9-12.6)
--- NOTE | 2022-04-16 15:21 | XRAY Report ---
PROCEDURE: Chest 2 View X-Ray INDICATIONS: Heart failure TECHNIQUE: 2 views of the chest were acquired. COMPARISON: 02/22/2022. FINDINGS: Surgical changes and devices: None. Lungs and pleura: No pleural effusions or pneumothorax. Lungs are clear. Mediastinum: Mediastinal contours are normal. Heart is enlarged. Bones and chest wall: No suspicious bony abnormalities. Soft tissues appear unremarkable. IMPRESSION: No acute cardiopulmonary disease process. Reviewed by: Geena Jama MD, PhD on 04/16/2022 3:20 PM PST Approved by: Geena Jama MD, PhD on 04/16/2022 3:20 PM PST Station ID: [id number]
== END 2022-04-16 11:39 | disposition home or self-care (01) ==
LOC: DI 11:38
PROVIDERS: ATTEND Family Medicine
DX: I50.9 Heart failure, unspecified (principal); E11.65 Type 2 diabetes mellitus with hyperglycemia; E55.9 Vitamin D deficiency, unspecified; Z79.899 Other long term (current) drug therapy
CPT/HCPCS: 36415; 80053; 82306; 82607; 83036; 83735; 84443; 85025; 85610

== ENCOUNTER 2022-07-03 15:15 | Outpatient (CLI) | payer MEDICARE, BC ==
[2022-07-03 15:43] LABS: BASOPHILS % (AUTO) 0.5 %; EOSINOPHILS % (AUTO) 0.5 %; HCT - HEMATOCRIT 43.8 % (37.0-47.0); HGB - HEMOGLOBIN 14.6 g/dL (12.0-16.0); LYMPHOCYTES # (AUTO) 1.9 10^3/uL (1.5-3.5); MEAN CORPUSCULAR HEMOGLOBIN 29.2 pg (27.0-31.0); MEAN CORPUSCULAR HGB CONC 33.3 g/dL (32.0-36.0); MEAN CORPUSCULAR VOLUME 87.6 fL (81.0-99.0); MEAN PLATELET VOLUME 9.7 fL (7.9-10.8); MONOCYTES # (AUTO) 0.6 10^3/uL (0.0-1.0); MONOCYTES % (AUTO) 6.7 %; NEUTROPHILS # (AUTO) 6.2 10^3/uL (1.5-6.6); NEUTROPHILS % (AUTO) 70.1 %; PLT - PLATELET COUNT 299 10^3/uL (130-450); RED CELL DISTRIBUTION WIDTH 14.1 % (12.0-15.0); WHITE BLOOD COUNT 8.8 x10^3/uL (4.8-10.8)
[2022-07-03 15:44] LABS: BILIRUBIN,URINE NEGATIVE (NEGATIVE); GLUCOSE, URINE (UA) NEGATIVE (NEGATIVE); KETONES,URINE (UA) NEGATIVE (NEGATIVE); LEUKOCYTE ESTERASE, URINE TRACE (NEGATIVE); NITRITE,URINE NEGATIVE (NEGATIVE); OCCULT BLOOD,URINE TRACE-INTA (NEGATIVE); PH,URINE 5.5 PH (5.0-7.5); PROTEIN,URINE NEGATIVE (NEGATIVE); UROBILINOGEN,URINE 0.2 (NORMAL) E.U./dL (NORMAL)
[2022-07-03 15:46] LABS: CLARITY,URINE CLEAR (CLEAR)
[2022-07-03 15:48] LABS: ESTIMATED AVERAGE GLUCOSE 166 mg/dL (70-100); HEMOGLOBIN A1c% 7.4 % (4.27-6.07)
[2022-07-03 15:53] LABS: BACTERIA,URINE Few /HPF (None Seen); RBC,URINE 0-5 /HPF (0-5); SQUAMOUS EPITHELIAL CELL,UR FEW Squamous (<= Few); WBC,URINE >25 /HPF (0-5)
[2022-07-03 15:56] LABS: ALBUMIN 4.1 g/dL (3.2-5.5); ALBUMIN/GLOBULIN RATIO 1.1 (1.0-2.2); BILIRUBIN,TOTAL 0.3 mg/dL (0.2-1.0); CALCIUM 9.5 mg/dL (8.5-10.3); CREATININE 0.9 mg/dL (0.4-1.0); MAGNESIUM 2.1 mg/dL (1.7-2.8); POTASSIUM 4.6 mmol/L (3.5-5.0); TOTAL PROTEIN 7.8 g/dL (6.7-8.2)
[2022-07-03 16:12] LABS: THYROID STIMULATING HORMONE 0.48 uIU/mL (0.34-5.60)
== END 2022-07-03 15:16 | disposition home or self-care (01) ==
LOC: LAB 15:15
PROVIDERS: ATTEND Family Medicine
DX: I10 Essential (primary) hypertension (principal); E11.65 Type 2 diabetes mellitus with hyperglycemia; R42 Dizziness and giddiness; E66.9 Obesity, unspecified; F32.1 Major depressive disorder, single episode, moderate; G99.0 Autonomic neuropathy in diseases classified elsewhere; N39.0 Urinary tract infection, site not specified
CPT/HCPCS: 36415; 80053; 81001; 82306; 82607; 83036; 83735; 84443; 85025; 87077; 87086; 87181

== ENCOUNTER 2022-09-24 12:50 | Outpatient (CLI) | payer MEDICARE, BC ==
[2022-09-24 13:15] LABS: BILIRUBIN,URINE NEGATIVE (NEGATIVE); GLUCOSE, URINE (UA) NEGATIVE (NEGATIVE); KETONES,URINE (UA) NEGATIVE (NEGATIVE); LEUKOCYTE ESTERASE, URINE SMALL (NEGATIVE); NITRITE,URINE POSITIVE (NEGATIVE); OCCULT BLOOD,URINE MODERATE (NEGATIVE); PH,URINE 5.5 PH (5.0-7.5); PROTEIN,URINE NEGATIVE (NEGATIVE); UROBILINOGEN,URINE 0.2 (NORMAL) E.U./dL (NORMAL)
[2022-09-24 13:16] LABS: CLARITY,URINE SL. CLOUDY (CLEAR)
[2022-09-24 13:31] LABS: BACTERIA,URINE Many /HPF (None Seen); RBC,URINE 0-5 /HPF (0-5); SQUAMOUS EPITHELIAL CELL,UR NONE SEEN (<= Few); WBC,URINE >25 /HPF (0-5)
== END 2022-09-24 12:51 | disposition home or self-care (01) ==
LOC: LAB 12:50
PROVIDERS: ATTEND Family Medicine
DX: N39.0 Urinary tract infection, site not specified (principal)
CPT/HCPCS: 81001; 87077; 87086; 87181

== ENCOUNTER 2023-01-11 16:12 | Outpatient (CLI) | payer MEDICARE, BC ==
--- NOTE | 2023-01-12 14:03 | XRAY Report ---
PROCEDURE: Hip w/Pelvis 2-3V RT INDICATIONS: LOW BACK PAIN, R HIP PAIN TECHNIQUE: AP pelvis with lateral view(s) of the right hip(s). COMPARISON: None. FINDINGS: Bones: No fractures or dislocations. No suspicious bony lesions. Soft tissues: No suspicious soft tissue calcifications or masses. IMPRESSION: No acute bony abnormality. Reviewed by: Alexandria Franco MD on 01/12/2023 2:01 PM PDT Approved by: Alexandria Franco MD on 01/12/2023 2:01 PM PDT Station ID: [id number]
--- NOTE | 2023-01-12 14:05 | XRAY Report ---
PROCEDURE: Lumbar Spine 2 View INDICATIONS: LOW BACK PAIN, R HIP PAIN TECHNIQUE: 2 views of the lumbar spine were acquired. COMPARISON: 11/20/2020 FINDINGS: Bones: 5 mae-nni-foltomb vertebrae are present. Grade 1 anterolisthesis L3-4 and L4-5. Moderate L1 v ertebral body fracture. Moderate to severe L5-S1 disc height loss. Other disc spaces are mildly decre ased. No suspicious bony lesions. Soft tissues: Overlying bowel gas pattern is normal. No suspicious soft tissue calcifications. Mod erate to heavy abdominal aortic calcification. IMPRESSION: 1. Mildly progressed L1 compression fracture. 2. Stable L3-4 and L4-5 anterolisthesis. 3. Stable moderate to severe L5-S1 disc height loss. Reviewed by: Alexandria Franco MD on 01/12/2023 2:04 PM PDT Approved by: Alexandria Franco MD on 01/12/2023 2:04 PM PDT Station ID: [id number]
== END 2023-01-11 16:13 | disposition home or self-care (01) ==
LOC: DI 16:12
PROVIDERS: ATTEND Family Medicine
DX: M25.551 Pain in right hip (principal); M51.37 Other intervertebral disc degeneration, lumbosacral region; M48.56XA Collapsed vertebra, not elsewhere classified, lumbar region, initial encounter for fracture; M43.16 Spondylolisthesis, lumbar region

== ENCOUNTER 2023-06-22 13:17 | Outpatient (CLI) | payer MEDICARE, BC ==
--- NOTE | 2023-06-22 19:03 | XRAY Report ---
PROCEDURE: Abdomen 1 V INDICATIONS: NEPHROLITHIASIS TECHNIQUE: One view of the abdomen acquired. COMPARISON: None. FINDINGS: Surgical changes and devices: None. Bowel: Bowel gas pattern is normal. Soft tissues: No suspicious abdominal calcifications. Question faint small calcification hilar port ion right kidney. Visualized solid organ contours appear normal in size. Bones: No suspicious bony lesions. IMPRESSION: Question tiny renal pelvis area stone involving the right kidney. This is not definite. Reviewed by: Garcia Bella MD on 06/22/2023 7:02 PM PDT Approved by: Garcia Bella MD on 06/22/2023 7:02 PM PDT Station ID: [id number]
--- NOTE | 2023-06-22 19:10 | Ultrasound Report ---
PROCEDURE: Renal (Retroperitoneal) INDICATIONS: NEPHROLITHIASIS TECHNIQUE: Real-time scanning was performed of the retroperitoneal organs, with image documentation. COMPARISON: Abdominal film from the same date. FINDINGS: Kidneys: Kidneys are normal in size. Right kidney measures 11.8 cm long; left kidney measures 12.2 cm long. Right renal cortical thickness is 1.6 cm; left renal cortical thickness is 0.8 cm. No kleber d masses or hydronephrosis. Probable nonobstructive left renal stone measuring 1.0 x 1.3 x 0.6 cm. Th is is not confirmed on plain film. Bladder: Pre-void bladder volume is 50.5 mL. Post-void residual is 8.4 mL. Pre-void images demonst rate no intraluminal masses or stones. On pre-void images, bilateral ureteral jets are noted with co mendoza Doppler interrogation. (Of note, ureteral jets may not be detectable in up to 25% of cases due t o insufficient differences in specific gravity between ureteral and bladder urine). Miscellaneous: No free abdominal fluid. IMPRESSION: 1. Normal-sized kidneys with no evidence of hydronephrosis. 2. Possible 1.3 cm maximum diameter left renal stone. However, this is not confirmed by plain films. Comment: Consider CT KUB if suspect symptomatic renal stone disease. Reviewed by: Garcia Bella MD on 06/22/2023 7:09 PM PDT Approved by: Garcia Bella MD on 06/22/2023 7:09 PM PDT Station ID: [id number]
== END 2023-06-22 13:18 | disposition home or self-care (01) ==
LOC: DI 13:17
PROVIDERS: ATTEND Registered Nurse
DX: N20.0 Calculus of kidney (principal); M48.56XD Collapsed vertebra, not elsewhere classified, lumbar region, subsequent encounter for fracture with routine healing; M47.816 Spondylosis without myelopathy or radiculopathy, lumbar region

== ENCOUNTER 2023-06-22 13:55 | Outpatient (CLI) | payer MEDICARE, BC ==
--- NOTE | 2023-06-22 19:07 | XRAY Report ---
PROCEDURE: Lumbar Spine 2-3V INDICATIONS: LUMBAR SPINE TECHNIQUE: 2 views of the lumbar spine were acquired. COMPARISON: 01/11/2023 FINDINGS: Bones: 5 vld-spe-wtiplkd vertebrae are present. Old mild to moderate L1 compression fracture. No acu te compression fractures. Unchanged alignment. Mild anterolisthesis of L4 on L5. Extensive lower lumb ar facet arthropathy. Suspect canal stenosis. No suspicious bony lesions. Soft tissues: Overlying bowel gas pattern is normal. Aorta contains relatively prominent calcificati ons. There is a suggestion of aneurysmal dilatation of the aorta at the level of L1. IMPRESSION: 1. Old mild to moderate L1 compression fracture, stable. No acute compression fractures. 2. Extensive lower lumbar facet arthropathy. Suspect canal stenosis. 3. Question aneurysmal dilatation of the abdominal aorta. Comment: Consider ultrasound or CT to evaluate the aorta. Reviewed by: Garcia Bella MD on 06/22/2023 7:06 PM PDT Approved by: Garcia Bella MD on 06/22/2023 7:06 PM PDT Station ID: [id number]
== END 2023-06-22 13:56 | disposition home or self-care (01) ==
LOC: DI 13:55
PROVIDERS: ATTEND Family Medicine
DX: M48.56XD Collapsed vertebra, not elsewhere classified, lumbar region, subsequent encounter for fracture with routine healing (principal); M47.816 Spondylosis without myelopathy or radiculopathy, lumbar region

== ENCOUNTER 2023-07-14 16:17 | Outpatient (CLI) | payer MEDICARE, BC ==
[2023-07-14 16:55] LABS: BASOPHILS # (AUTO) 0.1 10^3/uL (0.0-0.1); BASOPHILS % (AUTO) 0.5 %; EOSINOPHILS # (AUTO) 0.1 10^3/uL (0.0-0.7); EOSINOPHILS % (AUTO) 0.8 %; HGB - HEMOGLOBIN 14.4 g/dL (12.0-16.0); LYMPHOCYTES # (AUTO) 1.6 10^3/uL (1.5-3.5); LYMPHOCYTES % (AUTO) 17.4 %; MEAN CORPUSCULAR HEMOGLOBIN 29.3 pg (27.0-31.0); MEAN CORPUSCULAR HGB CONC 32.7 g/dL (32.0-36.0); MEAN CORPUSCULAR VOLUME 89.6 fL (81.0-99.0); MONOCYTES # (AUTO) 0.5 10^3/uL (0.0-1.0); NEUTROPHILS % (AUTO) 75.9 %; PLT - PLATELET COUNT 269 10^3/uL (130-450); RED BLOOD COUNT 4.91 10^6/uL (4.20-5.40); RED CELL DISTRIBUTION WIDTH 13.2 % (12.0-15.0); WHITE BLOOD COUNT 9.2 x10^3/uL (4.8-10.8)
[2023-07-14 17:08] LABS: ALBUMIN 4.2 g/dL (3.2-5.5); ALBUMIN/GLOBULIN RATIO 1.2 (1.0-2.2); BILIRUBIN,TOTAL 0.4 mg/dL (0.2-1.0); CALCIUM 10.2 mg/dL (8.5-10.3); CREATININE 1.1 mg/dL (0.6-1.3); POTASSIUM 4.5 mmol/L (3.5-4.5); TOTAL PROTEIN 7.6 g/dL (6.4-8.9)
[2023-07-14 20:45] LABS: ESTIMATED AVERAGE GLUCOSE 194 mg/dL (70-100); HEMOGLOBIN A1c% 8.4 % (4.27-6.07)
== END 2023-07-14 16:18 | disposition home or self-care (01) ==
LOC: LAB 16:17
PROVIDERS: ATTEND Family Medicine
DX: E11.65 Type 2 diabetes mellitus with hyperglycemia (principal); I10 Essential (primary) hypertension; E66.9 Obesity, unspecified; I25.10 Atherosclerotic heart disease of native coronary artery without angina pectoris; Z79.899 Other long term (current) drug therapy
CPT/HCPCS: 36415; 80053; 83036; 85025

== ENCOUNTER 2023-07-24 12:49 | Outpatient (CLI) | payer MEDICARE, BC ==
--- NOTE | 2023-07-24 15:17 | CT Report ---
Abdomen/Pelvis WO: 07/24/2023 12:53 PM PDT CLINICAL HISTORY: 77 years of age, Female, CALCULUS OF KIDNEY WITH CALCULUS OF URETER. COMPARISON: 11/08/2013. TECHNIQUE: A CT scan of the abdomen and pelvis was performed without the use of intravenous contrast. Images were recorded and evaluated at appropriate window settings. Reformats: coronal and sagittal. For radiation dose reduction, the following was used: automated exposure control, adjustment of mA a nd/or kV according to patient size. Intravenous contrast: Not administered. FINDINGS: Lower Chest: Mild discoid atelectasis in the left lower lobe. Small pericardial effusion. Severe jonnie nary artery calcification, partially visualized. Small hiatal hernia. Liver: Within normal limits. Gallbladder: unremarkable Pancreas: Atrophic. Spleen: Within normal limits. Adrenal Glands: Small nodularity of the left adrenal gland, unchanged from prior exam. Right kidney: . Subcentimeter right renal stone. No right hydronephrosis. 1.3 cm indeterminate lesion in the medial lower pole, new from prior exam. Left kidney:Renal cyst(s). 1.8 cm indeterminate lesion in the mid zone, increased in size from prior exam. 1.1 cm stone in the lower pole. No hydronephrosis of the left kidney. Bladder: Unremarkable Reproductive organ: Status post hysterectomy. The left and the right ovary are unremarkable. GI Tract: Colonic diverticulosis, most pronounced and severe in the sigmoid colon. No diverticulitis. Appendix is nonvisualized. No bowel obstruction or bowel wall thickening. Aorta: Severe atherosclerotic calcification of the abdominal aorta and its side branches. No aneurysm . Peritoneum/Retroperitoneum: No ascites. No abdominal or pelvic lymphadenopathy. Abdominal/Pelvic Wall: Within normal limits. Bones: Mild levoscoliosis at the thoracolumbar junction. Mild anterior compression fracture of L1 and mild superior endplate fracture of L2, age indeterminant but are new from prior exam. IMPRESSION: 1.Progressed bilateral indeterminate renal lesions. Recommend further evaluation with CT or MR renal protocol. 2.Mild anterior compression fracture of L1 and mild superior endplate fracture of L2, age-indetermina te but are new from prior exam. 3.Additional chronic findings described above. Reviewed by: Elle Tejada MD on 07/24/2023 3:16 PM PDT Approved by: Elle Tejada MD on 07/24/2023 3:16 PM PDT Station ID: [email or web address]
== END 2023-07-24 12:50 | disposition home or self-care (01) ==
LOC: DI 12:49
PROVIDERS: ATTEND Family Medicine
DX: N20.2 Calculus of kidney with calculus of ureter (principal); N28.9 Disorder of kidney and ureter, unspecified; M48.56XA Collapsed vertebra, not elsewhere classified, lumbar region, initial encounter for fracture; I25.10 Atherosclerotic heart disease of native coronary artery without angina pectoris; K44.9 Diaphragmatic hernia without obstruction or gangrene; N20.0 Calculus of kidney; N28.1 Cyst of kidney, acquired; K57.30 Diverticulosis of large intestine without perforation or abscess without bleeding; I70.0 Atherosclerosis of aorta

== ENCOUNTER 2023-10-30 12:02 | Outpatient (CLI) | payer MEDICARE, BC ==
--- NOTE | 2023-10-30 17:12 | XRAY Report ---
Lumbar Spine 2-3V HISTORY: 78 years of age, LOW BACK AND THORACIC PAIN TECHNIQUE: Lumbar Spine 2-3V COMPARISON: 06/22/2023. FINDINGS/IMPRESSION: Mild levocurvature, centered at the thoracolumbar junction, grossly unchanged from prior exam. Grade 1 anterolisthesis of L3 on L4, L4-L5. Mild superior endplate fracture of L1, unchanged from prior exa m, chronic. Severe lumbar facet arthropathy. Multilevel, moderate degenerative disc disease of the khanh mbar spine. Severe atherosclerotic calcification of the abdominal aorta. Reviewed by: Elle Tejada MD on 10/30/2023 5:10 PM PDT Approved by: Elle Tejada MD on 10/30/2023 5:10 PM PDT Station ID: [email or web address]
--- NOTE | 2023-10-30 17:14 | XRAY Report ---
Thoracic Spine 2V HISTORY: 78 years of age, LOW BACK AND THORACIC PAIN TECHNIQUE: Thoracic Spine 2V COMPARISON: None. FINDINGS/IMPRESSION: Mild dextrocurvature of the thoracic spine. Cervical thoracic junction is not well-visualized. Mild s traightening of the thoracic spine. Visualized vertebral body heights are well-maintained. Multilevel , severe degenerative disc disease of the thoracic spine. 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 Reviewed by: Elle Tejada MD on 10/30/2023 5:13 PM PDT Approved by: Elle Tejada MD on 10/30/2023 5:13 PM PDT Station ID: [email or web address]
== END 2023-10-30 12:03 | disposition home or self-care (01) ==
LOC: DI 12:02
PROVIDERS: ATTEND Family Medicine
DX: M51.36 Other intervertebral disc degeneration, lumbar region (principal); M47.816 Spondylosis without myelopathy or radiculopathy, lumbar region; M43.16 Spondylolisthesis, lumbar region; M41.9 Scoliosis, unspecified; I70.0 Atherosclerosis of aorta; M51.34 Other intervertebral disc degeneration, thoracic region; M48.56XA Collapsed vertebra, not elsewhere classified, lumbar region, initial encounter for fracture

== ENCOUNTER 2023-11-22 09:22 | Outpatient (CLI) | payer MEDICARE, BC ==
--- NOTE | 2023-11-22 22:11 | Ultrasound Report ---
PROCEDURE: Renal Ltd (Retroperitoneal Ltd INDICATIONS: AAA TECHNIQUE: Real time scanning was performed of the aorta and iliac arteries, with image documentatio n. COMPARISON: None. FINDINGS: Aorta: Proximal aortic diameter measures 2.6 x 2.3 cm. Mid-aorta measures 1.9 x 1.9 cm. Distal aor tic diameter is 1.5 x 1.5 cm. Iliac arteries: Right common iliac artery measures 1.4 x 1.3 cm. Left common iliac artery measures 1.0 x 1.2 cm. IMPRESSION: Negative screening abdominal aortic ultrasound for aneurysm. No further routine scheduled follow-up i ndicated. Reviewed by: Garcia Bella MD on 11/22/2023 10:10 PM PDT Approved by: Garcia Bella MD on 11/22/2023 10:10 PM PDT Station ID: [id number]
== END 2023-11-22 09:23 | disposition home or self-care (01) ==
LOC: DI 09:22
PROVIDERS: ATTEND Family Medicine
DX: I70.0 Atherosclerosis of aorta (principal)

== ENCOUNTER 2025-02-13 04:30 | Observation (INO) ==
--- NOTE | 2025-02-13 04:39 | ED Physician Documentation ---
PD HPI DYSPNEA Stated complaint Stated Complaint: SOA Chief complaint Chief Complaint: Resp Additional information Additional information: 79-year-old with history of CAD status post 2 stents,atrial fibrillation on Eliquis, hypertension, hyperlipidemia, and diabetes presents with cough and dyspnea. Patient reports a few days of nonproductive cough and worsening dyspnea. This evening, she was having difficulty breathing, so she presents to the emergency department. She reports significant dyspnea when fully recumbent. She has not had a fever. No chest pain. She has been in and out of the hospital for the last couple of days dealing with a kidney stone. She is currently on Bactrim for urinary tract infection. She has had 2 chest radiographs in the last couple days, which were both interpreted as no pneumonia per her report. She apparently does have a questionable history of CHF but is not on a diuretic. 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 Meds/Allgy Home Medications Ambulatory Orders Medication Instructions Recorded Confirmed apixaban 5 mg tablet (Eliquis) 5 mg PO BID 12/17/21 insulin glargine U-300 conc 300 20 unit subcut DAILY 0 12/17/21 02/13/25 unit/mL (1.5 mL) subcutaneous pen (Toujeo SoloStar U-300 Insulin) pravastatin 20 mg tablet 20 mg PO QPM 12/17/21 saxagliptin 5 mg tablet (Onglyza) 5 mg PO DAILY 02/13/25 biotin 2,500 mcg capsule 2,500 mcg PO DAILY 02/13/25 02/13/25 cholecalciferol (vitamin D3) 125 125 mcg PO DAILY 12/3002/13/25 mcg (5,000 unit) capsule diphenhydramine HCl 25 mg capsule 25 mg PO QPM PRN sle ep 02/13/25 02/13/25 (Aler-Cap) dulaglutide 0.75 mg/0.5 mL 0.75 mg subcut SA 02/13/25 02/13/25 subcutaneous pen injector (Trulicity) escitalopram oxalate 10 mg tablet 10 mg PO DAILY 02/1302/13/25 fesoterodine 4 mg tablet,extended 4 mg PO BID 02/13/25 02/13/25 release 24 hr lorazepam 0.5 mg tablet 0.5 - 1 mg PO Q6H PRN anxiet y 02/13/25 02/13/25 magnesium glycinate 100 mg (as 100 mg PO DAILY 5 02/13/25 glycinate) tablet (Mag Glycinate) metoprolol succinate 100 mg 100 mg PO QPM 02/13/2512/30 tablet,extended release 24 hr nitroglycerin 0.4 mg sublingual 0.4 mg sublingual Q5M PRN chest 02/13/25 02/13/25 tablet (Nitrostat) pain sacubitril 24 mg-valsartan 26 mg 1 tab PO BID 02/13/25 02/13/25 tablet (Entresto) sulfamethoxazole 800 1 tab PO BID 02/13/25 mg-trimethoprim 160 mg tablet (Bactrim DS) turmeric 400 mg capsule 500 mg PO DAILY 02/13/2512/30 zinc sulfate 50 mg zinc (220 mg) 50 mg PO DAILY 02/13/25 capsule (Zinc-220) Allergies Allergies Allergy/AdvReac Type Severity Reaction Status Date / Time ciprofloxacin (From Cipro) AdvReac Unknown Verified 02/13/25 04:41 PFSH Active Problems All Active Problems (Updated 02/13/25 @ 13:38 by Nicole Bucio MD) Anxiety (Chronic) Paroxysmal atrial fibrillation (Chronic) Cardiomyopathy (Acute) Recent upper respiratory tract infection (Acute) Acute dyspnea (Acute) Acute exacerbation of CHF (congestive heart failure) (Acute) Kidney stones (Acute) Mixed incontinence urge and stress (Acute) Fractured medial malleolus (Acute) Right ureteral calculus (Acute) Diabetes mellitus with hyperglycemia (Acute) Urinary tract infection (Acute) Fall (Acute) Sepsis (Acute) Renal colic (Acute) Medical History Medical History (Updated 02/13/25 @ 13:38 by Nicole Bucio MD) Breast CA Social History Social History (Updated 02/13/25 @ 05:16 by Tara Mcdonald RN) Smoking Status: Unknown if ever smoked Do you dip or chew tobacco?: No Do you vape?: No Patient requests smoking cessation consult: No Initiate information on smoking cessation: No Level: Independent Do you feel safe in your home environment?: Yes History of physical, verbal, emotional, or financial abuse?: No Are you sexually active?: No Exam Exam Vital Signs: Vital Signs x48h Temp Pulse Resp BP Pulse Ox 02/13/25 04:30 37.0 C 84 16 139/73 H 94 Alert and in no acute distress. She is mildly tachypneic with oxygen saturation 90 to 91%. She is not tachycardic. Bilateral crackles in the lower lungs. S1 and S2 are audible. Moving all extremities without focal neurologic deficit. No edema of the lower extremities bilaterally. Results Vitals Vitals: Vital Signs - 24 hr 02/13/25 04:30 02/13/25 06:09 02/13/25 08:00 Temperature 37.0 C Temperature Source Temporal Artery Scan Pulse Rate 84 87 88 Respiratory Rate 16 20 Blood Pressure 139/73 H 148/86 H 132/85 H O2 Saturation 94 92 94 O2 Source Room air Room air Room air Pain Intensity 0 0 02/13/25 08:39 Temperature Temperature Source Pulse Rate 76 Respiratory Rate Blood Pressure 121/66 O2 Saturation 93 O2 Source Room air Pain Intensity Oxygen O2 Source [Without Activity] Room air O2 Source Room air EKG (time done) 5:32: EKG releavant findings:: EKG personally interpreted by author of this note. Relevant findings are: Rate: Rate (enter#) (78) Rhythm: NSR [place]: LAD Intervals: Prolonged SD Ischemia: Non specific changes; No ST elevation c/w ischemia or ST depression Labs Labs: Laboratory Tests 02/13/25 02/13/25 02/13/25 05:08 05:08 07:17 WBC 7.7 RBC 4.28 Hgb 12.6 Hct 37.8 MCV 88.3 MCH 29.4 MCHC 33.3 RDW 14.3 Plt Count 306 MPV 9.8 Neut # (Auto) 5.8 Lymph # (Auto) 1.3 L [place] # (Auto) 0.5 Eos # (Auto) 0.1 Baso # (Auto) 0.0 Absolute Nucleated RBC 0.00 Nucleated RBC % 0.0 Sodium 141 Potassium 3.2 L Chloride 113 H Carbon Dioxide 24 Anion Gap 4.0 L BUN 17 Creatinine 0.7 Estimated GFR (MDRD) 81 L Glucose 189 H Calcium 8.7 Phosphorus Magnesium Total Bilirubin 0.5 AST 12 ALT 15 Alkaline Phosphatase 50 Troponin I High Sens 47.2 H* 43.9 H* B-Natriuretic Peptide Cancelled 3446 H Total Protein 6.0 L Albumin 3.6 Globulin 2.4 Albumin/Globulin Ratio 1.5 Procalcitonin Immunoas < 0.05 02/13/25 08:34 WBC RBC Hgb Hct MCV MCH MCHC RDW Plt Count MPV Neut # (Auto) Lymph # (Auto) [place] # (Auto) Eos # (Auto) Baso # (Auto) Absolute Nucleated RBC Nucleated RBC % Sodium 142 Potassium 3.9 Chloride 107 Carbon Dioxide 26 Anion Gap 9.0 BUN 16 Creatinine 0.8 Estimated GFR (MDRD) 69 L Glucose 262 H Calcium 8.8 Phosphorus 2.6 Magnesium 1.8 Total Bilirubin AST ALT Alkaline Phosphatase Troponin I High Sens B-Natriuretic Peptide 3547 H Total Protein Albumin Globulin Albumin/Globulin Ratio Procalcitonin Immunoas PD Medical Decision Making ED course ED course: This patient presents with continued cough and dyspnea. She is mildly tachypneic with low normal oxygen saturation. There are crackles in the bilateral lower lungs on auscultation. She is compliant with her Eliquis, so PE seems unlikely. Differential diagnosis includes ACS, arrhythmia, CHF, pneumonia, pneumothorax, viral infection. I will order ECG, labs, and CT chest given recent negative chest x-rays per patient report. CT chest shows bilateral pleural effusions with pericardial effusion. Bedside ultrasound was performed by me. Images were not saved. There is no pericardial tamponade. EF appears notably depressed. There are bilateral pleural effusions. She was given 40 mg of IV Lasix. Care was signed out to daytime physician Dr. Neal for final disposition. Discharge Plan Discharge Patient Disposition: ED Place in Observation Condition: Stable Clinical Impression: Acute dyspnea, Recent upper respiratory tract infection Acute exacerbation of CHF (congestive heart failure) Qualifiers: Heart failure type: unspecified Qualified Code(s): I50.9 - Heart failure, unspecified Cardiomyopathy Qualifiers: Cardiomyopathy type: unspecified Qualified Code(s): I42.9 - Cardiomyopathy, unspecified Interventions: ED Admission Assessment Last Done: 02/13/25 10:02 Vitals documented within 30 minutes of discharge?: Yes
--- OUTSIDE RECORDS SUMMARY | 2025-02-13 04:44 | EXTERNAL MEDICAL SUMMARY RPT | Continuity of Care Document ---
Author Organization [facility] Address [address] [place] [id number] Phone Problems date description facility 2025-01-13 00:04 Type 2 diabetes mellitus with [facility]perglycemia [facility]25-01-13 08:23 Type 2 diabetes mellitus with [facility]perglycemia [facility] 2025-01-13 08:35 Type 2 diabetes [facility] 2025-01-13 08:35 Hyperlipidemia, unspecified [facility] 2025-01-13 08:35 Essential (primary) hypertensio n [facility] 2025-01-13 08:35 Urinary tract infection, site n ot specified [facility] 2025-01-13 08:[address], [address] [facility] 2025-01-13 08:35 Encounter for screen ing for diseases of the blood and blood-forming organs and certain disorders involving the immune mechanism [facility] 2025-01-13 08:35 Encounter for screen ing for other suspected endocrine disorder [facility] 2025-01-13 13:10 Other abnormal and i nconclusive findings on diagnostic [facility] 2025-01-13 13:49 Other abnormal and i nconclusive findings on diagnostic [facility] Results/Labs test date facility value unit notes Result panel 1 NUCLEATED RED BLOOD CELLS AUTO 2025-01-12 12:11 [facility] 0.0 /100wbc (missing) BASOPHILS # (AUTO) 2025-01-12 12:11 [facility] 0.0 10 3/ul (missing) NRBC ABSOLUTE COUNT (AUTO) 2025-01-12 12:11 [facility] 0.00 x10 3/ul (missing) EOSINOPHILS # (AUTO) 2025-01-12 12:11 [facility] 0.1 10 3/ul (missing) BILIRUBIN,TOTAL 2025-01-12 12:11 [facility] 0.5 mg/dl As of October 2022 testing method has changed, this may include reference ranges. MONOCYTES # (AUTO) 2025-01-12 12:11 [facility] 0.6 10 3/ul (missing) THYROID STIMULATING HORMONE 2025-01-12 12:11 [facility] 0.62 uiu/ml (missing) CREATININE 2025-01-12 12:11 [facility] 0.8 mg/dl As of October 2022 testing method has changed, this may include reference ranges. TOTAL T3 2025-01-12 12:11 [facility] 0.99 ng/ml Biotin at >1 ng/mL concentration may cause significant interference. ALBUMIN/GLOBULIN RATIO 2025-01-12 12:11 [facility] 1.5 (missing) (missing) LDL/HDL RATIO 2025-01-12 12:11 [facility] 1.8 (missing) (missing) MEAN PLATELET VOLUME 2025-01-12 12:11 [facility] 10.3 fl (missing) CHLORIDE 2025-01-12 12:11 [facility] 107 mmol/l As of October 2022 testing method has changed, this may include reference ranges. GLUCOSE 2025-01-12 12:11 [facility] 118 mg/dl As of October 2022 testing method has changed, this may include reference ranges. TRIGLYCERIDES 2025-01-12 12:11 [facility] 120 mg/dl Unknown Triglyceride Risk Classification <150 mg/dL Normal 150-199 mg/dL Borderline High 200-499 mg/dL High >500 mg/dL Very High As of October 2022 testing method has changed, this may include reference ranges. RED CELL DISTRIBUTION WIDTH 2025-01-12 12:11 [facility] 13.6 % (missing) HGB - HEMOGLOBIN 2025-01-12 12:11 [facility] 14.4 g/dl (missing) SODIUM 2025-01-12 12:11 [facility] 140 mmol/l Unknown ALT ALANINE AMINOTRANSFERASE 2025-01-12 12:11 [facility] 15 iu/l As of October 2022 testing method has changed, this may include reference ranges. CHOLESTEROL 2025-01-12 12:11 [facility] 156 mg/dl Total Cholesterol Risk Classification Cholesterol Level Risk Classification <200 mg/dL Desirable 200-239 mg/dL Borderline High >240 mg/dL High As of October 2022 testing method has changed, this may include reference ranges. AST ASPARTATE AMINOTRANSFERASE 2025-01-12 12:11 [facility] 18 iu/l As of October 2022 testing method has changed, this may include reference ranges. ESTIMATED AVERAGE GLUCOSE 2025-01-12 12:11 [facility] 180 mg/dl (missing) LYMPHOCYTES # (AUTO) 2025-01-12 12:11 [facility] 2.2 10 3/ul (missing) BUN - BLOOD UREA NITROGEN 2025-01-12 12:11 [facility] 21 mg/dl As of October 2022 testing method has changed, this may include reference ranges. VLDL CHOLESTEROL 2025-01-12 12:11 [facility] 24 mg/dl (missing) PLT - PLATELET COUNT 2025-01-12 12:11 [facility] 251 10 3/ul (missing) CARBON DIOXIDE - CO2 2025-01-12 12:11 [facility] 26 mmol/l As of October 2022 testing method has changed, this may include reference ranges. MEAN CORPUSCULAR HEMOGLOBIN 2025-01-12 12:11 [facility] 28.7 pg (missing) GLOBULIN 2025-01-12 12:11 [facility] 3.1 g/dl (missing) CHOL/HDL RATIO 2025-01-12 12:11 [facility] 3.3 (missing) NATIONAL CHOLESTEROL GUIDELINE [facility] ([facility]) guidelines for classificaton, testing and management of cholesterol levels in adults over 20 years of age. This new classification creates three categories of risk for coronary heart disease, regardless of age or sex, according to total amd LDL cholesterols levels: Based on total cholesterol level Desirable <200 mg/dl Borderline-high 200-239 mg/dl High >=240 mg/dl Based on cholesterol ratio CHD RISK CHOL/HDL RATIO --- MALE FEMALE 0.5 x Average 3.4 3.3 1.0 x Average 5.0 4.4 2.0 x Average 9.6 7.1 3.0 x Average 13.5 11.0 MEAN CORPUSCULAR HGB CONC 2025-01-12 12:11 [facility] 31.4 g/dl (missing) POTASSIUM 2025-01-12 12:11 [facility] 4.2 mmol/l As of October 2022 testing method has changed, this may include reference ranges. ALBUMIN 2025-01-12 12:11 [facility] 4.5 g/dl As of October 2022 testing method has changed, this may include reference ranges. T3 UPTAKE 2025-01-12 12:11 [facility] 40 % (missing) HCT - HEMATOCRIT 2025-01-12 12:11 [facility] 45.8 % (missing) HDL CHOLESTEROL 2025-01-12 12:11 [facility] 47 mg/dl Coronary Heart Disease Risk Classification HDL Level Risk factor < 40 mg/dL major risk > 60 mg/dL negative risk As of October 2022 testing method has changed, this may include reference ranges. ALKALINE PHOSPHATASE 2025-01-12 12:11 [facility] 48 iu/l As of October 2022 testing method has changed, this may include reference ranges. RED BLOOD COUNT 2025-01-12 12:11 [facility] 5.01 10 6/ul (missing) NEUTROPHILS # (AUTO) 2025-01-12 12:11 [facility] 5.8 10 3/ul (missing) GFR - MDRD 2025-01-12 12:11 [facility] 69 (missing) The IDMS-traceable MDRD Study Equation has been validated extensively in and populations between the ages of 18 and 70 with impaired kidney function (eGFR < 60 mL/min/1.73m2) and has shown good performance for patients with all common causes of kidney disease. Although this equation has not been validated for patients older than 70, an MDRD-derived eGFR may still be a useful tool for providers caring for patients older than 70. References: http://www.nkdep.ni h.gov/lab-evaluatio n/gfr/creatinine-st and ardization, last updated June 2011. ANION GAP 2025-01-12 12:11 [facility] 7.0 (missing) (missing) TOTAL PROTEIN 2025-01-12 12:11 [facility] 7.6 g/dl As of October 2022 testing method has changed, this may include reference ranges. HEMOGLOBIN A1c% 2025-01-12 12:11 [facility] 7.9 % The [place] [employer] (ADA) has made the following recommendations: Monitoring HbA1c in Diabetic Patients: A1c (NGSP%) Goal <8 Less Stringent Goal <7 General Goal <6.5 More Stringent Goal Diagnosis of Diabetes: A1c (NGSP%) Goal >6.5 Diabetic 5.7-6.4 Pre-Diabetic <5.7 Non-Diabetic WHITE BLOOD COUNT 2025-01-12 12:11 [facility] 8.7 x10 3/ul (missing) LDL CHOLESTEROL,CALCULATED 2025-01-12 12:11 [facility] 85 mg/dl LDLD REFERENCE RANGE AND CARDIOVASCULAR RISK: <130 mg/dL Desirable 130-159 mg/dL Borderline High Risk >160 mg/dL High Risk T4 (THYROXINE) 2025-01-12 12:11 [facility] 9.3 ug/dl (missing) CALCIUM 2025-01-12 12:11 [facility] 9.6 mg/dl As of October 2022 testing method has changed, this may include reference ranges. MEAN CORPUSCULAR VOLUME 2025-01-12 12:11 [facility] 91.4 fl (missing) Social History date description facility
[2025-02-13 05:27] LABS: HCT - HEMATOCRIT 37.8 % (37.0-47.0); HGB - HEMOGLOBIN 12.6 g/dL (12.0-16.0); MEAN PLATELET VOLUME 9.8 fL (7.9-10.8); NRBC ABSOLUTE COUNT (AUTO) 0.00 x10^3/uL; NUCLEATED RED BLOOD CELLS AUTO 0.0 /100WBC; PLT - PLATELET COUNT 306 10^3/uL (130-450); RED CELL DISTRIBUTION WIDTH 14.3 % (12.0-15.0)
[2025-02-13 05:39] LABS: ALT ALANINE AMINOTRANSFERASE 15 IU/L (10-60); AST ASPARTATE AMINOTRANSFERASE 12 IU/L (10-42); BUN - BLOOD UREA NITROGEN 17 mg/dL (6-20); CARBON DIOXIDE - CO2 24 mmol/L (21-32); CREATININE 0.7 mg/dL (0.6-1.3); GFR - MDRD 81 (>89)
[2025-02-13] MEDS: FUROSEMIDE 40 MG/4 ML VIAL IVP STA (05:58)
[2025-02-13] MEDS: POTASSIUM BICARB 25 MEQ TABLET PO STA (05:58)
--- NOTE | 2025-02-13 06:36 | CT Report ---
PROCEDURE: CT Chest WO INDICATIONS: bilateral lower crackles, cough TECHNIQUE: A CT scan of the chest was performed. Intravenous contrast media was not administered. Images were recorded and evaluated at appropriate window settings. Reformats: axial MIP of the chest, coronal and sagittal. For radiation dose reduction, the following was used: automated exposure control, adjustment of mA and/or kV according to patient size. COMPARISON: None. FINDINGS: Image quality: Diagnostic. Chest wall and lower neck: No thyroid nodule which requires sonographic follow up. No axillary or supraclavicular adenopathy by size. Lungs and pleura: No consolidation. No pleural effusions. No pneumothorax. No suspicious pulmonary nodules which require follow up. Mediastinum: Heart size is enlarged. Coronary artery stents. Severe coronary artery calcifications. Mild pericardial effusion. No pericardial effusion. Top normal ascending aorta, measuring 4.0 cm. Enlarged right main pulmonary artery measuring 3.4 cm, suggesting possible pulmonary arterial hypertension. Moderate right pleural effusion and mild to moderate left pleural effusion. Compressive bibasilar atelectasis. No pulmonary edema. No mediastinal adenopathy by size criteria. Bones: No aggressive osseous abnormality. A mild L1 compression is likely chronic.. Upper Abdomen: Unremarkable. IMPRESSION: Findings are consistent with a congestive heart failure exacerbation. Although there is no pulmonary edema, there is cardiomegaly and there are bilateral pleural effusions and there is bibasilar atelectasis. Reviewed by: Garcia Bella MD on 02/13/2025 6:33 AM PST Approved by: Garcia Bella MD on 02/13/2025 6:33 AM PST Station ID: [id number]
--- NOTE | 2025-02-13 08:25 | ED Physician Documentation ---
ED Addendum Addendum Addendum: The patient states she is feeling slightly better with her breathing but still felt very weak and dyspneic with just ambulating around the room. Her saturations remained at 93 to 95% but she did feel work of breathing. No chest pain with this. Her initial troponin had been only slightly elevated. It was at 43 and a repeat 2 hours later was 47. This would be most consistent with some mild cardial demand ischemia related to the shortness of breath. It would not be suggestive of acute TN nor myocarditis from her recent illness. She had been in the ER at [facility] twice in the last 1 to 2 weeks. Once her kidney stone and another 4 cough and trouble breathing. She had been on Augmentin for course of that from her primary care I believe. She was diagnosed with a UTI as well in the ER and given Rocephin 1 dose and Bactrim orally. She had finished that course. She now has the trouble breathing built up over the last 2 to 3 days. History of coronary artery disease and remotely had been on diuretics. None currently. Her CT scan of the chest showed significant effusions and some interstitial vascular enhancement. Very small pericardial effusion. Remote echocardiogram reportedly showed 50% EF. At this point the patient is not hypoxic but is still having work of breathing with apparent fluid accumulation in the lungs/CHF. She does not seem ill with fevers in such at this time so doubt empyema. She was having notable tachypnea and dyspnea with just bedside walking in the room. I feel this and the demand ischemia is concerning and may meet criteria for observation to better diurese and get her breathing easier. Disposition: Place in the hospital under observation Diagnoses: 1. Dyspnea 2. Acute exacerbation of CHF 3. Recent URI 4. Elevated troponin Discharge Plan Discharge Patient Disposition: ED Place in Observation Condition: Stable Clinical Impression: Acute exacerbation of CHF (congestive heart failure), Acute dyspnea, Recent upper respiratory tract infection Prescriptions: No Action metoprolol succinate 50 MG tablet extended release 24 hr 50 mg PO DAILY pravastatin 20 MG tablet 20 mg PO DAILY fesoterodine [Toviaz] 8 MG tablet extended release 24 hr 8 mg PO DAILY saxagliptin [Onglyza] 5 MG tablet 5 mg PO DAILY Eliquis 5 MG tablet 5 mg PO DAILY Trulicity 1.5 MG/0.5 ML pen injector 1.5 mg SQ DAILY insulin glargine U-300 conc [Toujeo SoloStar U-300 Insulin] 300 UNIT/ML insulin pen 1 applic SQ DAILY Rx Instructions: As directed magnesium oxide 400 MG capsule 400 mg PO DAILY lorazepam [Ativan] 2 mg tablet 2 mg PO BID PRN (Reason: anxiety) Patient Comments: for panic attacks if needed Print Language: Macedonian Stand Alone Forms: PCP List
[2025-02-13] MEDS: FUROSEMIDE 20 MG/2 ML VIAL IVP STA (08:31)
[2025-02-13 08:59] LABS: BUN - BLOOD UREA NITROGEN 16.0 mg/dL (6-20); CARBON DIOXIDE - CO2 26.0 mmol/L (21-32); CREATININE 0.8 mg/dL (0.6-1.3); GFR - MDRD 69.0 (>89); PHOSPHORUS 2.6 mg/dL (2.5-5.0)
[2025-02-13] MEDS ORDERED: ONDANSETRON ODT 4 MG TABLET TL PRN (10:03)
[2025-02-13] MEDS ORDERED: SODIUM CHLORIDE FLUSH 0.9% 10 ML SYRINGE IVP PRN (10:03)
[2025-02-13] MEDS: BENZOCAINE/MENTHOL LOZENGE MM PRN (10:17)
--- NOTE | 2025-02-13 11:39 | PHARMACY PROGRESS NOTE ---
Best Possible Medication History Admit Date and Time: 02/13/259080812 Home Medications Medication Instructions Recorded Confirmed Type apixaban 5 mg tablet (Eliquis) 5 mg PO BID 12/17/21 History insulin glargine U-300 conc 300 20 unit subcut DAILY 0 12/17/21 02/13/25 History unit/mL (1.5 mL) subcutaneous pen (TouStoryzo SoloStar U-300 Insulin) pravastatin 20 mg tablet 20 mg PO QPM 12/17/21 History saxagliptin 5 mg tablet (Onglyza) 5 mg PO DAILY 02/13/25 History biotin 2,500 mcg capsule 2,500 mcg PO DAILY 02/13/25 02/13/25 History cholecalciferol (vitamin D3) 125 125 mcg PO DAILY 12/3002/13/25 History mcg (5,000 unit) capsule diphenhydramine HCl 25 mg capsule 25 mg PO QPM PRN sle ep 02/13/25 02/13/25 History (Aler-Cap) dulaglutide 0.75 mg/0.5 mL 0.75 mg subcut SA 02/13/25 02/13/25 History subcutaneous pen injector (Trulicity) escitalopram oxalate 10 mg tablet 10 mg PO DAILY 02/1302/13/25 History fesoterodine 4 mg tablet,extended 4 mg PO BID 02/13/25 02/13/25 History release 24 hr lorazepam 0.5 mg tablet 0.5 - 1 mg PO Q6H PRN anxiet y 02/13/25 02/13/25 History lorazepam 2 mg tablet (Ativan) 2 mg PO BID PRN anxiety 02/13/25 02/13/25 History magnesium glycinate 100 mg (as 100 mg PO DAILY 5 02/13/25 History glycinate) tablet (Mag Glycinate) metoprolol succinate 100 mg 100 mg PO QPM 02/13/2512/30 History tablet,extended release 24 hr nitroglycerin 0.4 mg sublingual 0.4 mg sublingual Q5M PRN chest 02/13/25 02/13/25 History tablet (Nitrostat) pain sacubitril 24 mg-valsartan 26 mg 1 tab PO BID 02/13/25 02/13/25 History tablet (Entresto) sulfamethoxazole 800 1 tab PO BID 02/13/25 History mg-trimethoprim 160 mg tablet (Bactrim DS) turmeric 400 mg capsule 500 mg PO DAILY 02/13/2512/30 History zinc sulfate 50 mg zinc (220 mg) 50 mg PO DAILY 02/13/25 History capsule (Zinc-220) Processed by: Pharmacy Medications reviewed in ED?: No Medication History completed: Yes Patient Interview: Completed Secondary Source(s): Pharmacy records and Insurance records [facility] Statement: As the person ultimately responsible for medication therapy, providers are able to order a medication from an existing home medication list in [facility] via the "Reconcile Routine" prior to Confirmation of that medication by software support specialist. Such practice is discouraged except when the physician, in their clinical judgment, deems that a medical need exists for a medication without regard to previous use.
--- NOTE | 2025-02-13 11:46 | HISTORY & PHYSICAL EXAMINATION ---
Chief Complaint Chief Complaint Chief Complaint: Shortness of breath History of Present Illness Admitted From Admitted From:: Home History Obtained From Records Reviewed: EMR History obtained from: Patient Exam Limitations: Sleepy History of Present Illness HPI Comment/Other: Patient is a 79-year-old female with a history of congestive heart failure unknown ejection fraction who presents with worsening shortness of breath. Per patient, in the last couple weeks, she has been dealing with bronchitis and a urinary tract infection. She has had a persistent cough with minimal sputum production. She received antibiotics for both of the above, and was initially having some improvement. However, for the past 3 days, she has noted a marked decline in her respiratory status. She is having difficulty breathing. She states that she has not slept for the past 2-3 nights because every time she lies down, she cannot catch her breath. She is unsure if she has gained any weight, does not weigh herself daily. States that she does not eat much daily, but does enjoy a turkey roast. She has not had any other sandwich meats, does not eat a high salt diet, and has not been drinking more water or fluids in the last few days. She has a history of congestive heart failure, and endorses a cardiac catheterization with stent placement in the recent past. She sees a circus agent, Dr. Soliz in [place]. She states the last time she saw them was about 2 weeks ago. She does not know what her ejection fraction is. She states she is on Eliquis for paroxysmal atrial fibrillation. Past medical history includes congestive heart failure, unknown ejection fraction, hypertension, hyperlipidemia, depression with recent panic attacks, and insulin-dependent diabetes mellitus, breast cancer in remission for over 10 years. Medications include Lexapro, Eliquis, insulin glargine, Entresto, pravastatin, metoprolol. She has no known drug allergies, but does not like to take ciprofloxacin, reason unknown. She has had a hysterectomy, cardiac catheterization, lymph node removal. She denies any alcohol use. She smoked very briefly in her 20s. She denies any recreational drug use. She lost her in April of this year, and has had a lot of difficulty with dealing with this grief. She is notably depressed. She otherwise ambulates independently, does not use any assistive devices. Her DPOA her next of kin would be a friend that lives in town. Her closest family members, although she does not specify who are in [place]. 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 CODE STATUS was discussed, and patient would like to be a full code. Meds/Allgy Home Medications Ambulatory Orders Medication Instructions Recorded Confirmed apixaban 5 mg tablet (Eliquis) 5 mg PO BID 12/17/21 insulin glargine U-300 conc 300 20 unit subcut DAILY 0 12/17/21 02/13/25 unit/mL (1.5 mL) subcutaneous pen (Toujeo SoloStar U-300 Insulin) pravastatin 20 mg tablet 20 mg PO QPM 12/17/21 saxagliptin 5 mg tablet (Onglyza) 5 mg PO DAILY 02/13/25 biotin 2,500 mcg capsule 2,500 mcg PO DAILY 02/13/25 02/13/25 cholecalciferol (vitamin D3) 125 125 mcg PO DAILY 12/3002/13/25 mcg (5,000 unit) capsule diphenhydramine HCl 25 mg capsule 25 mg PO QPM PRN sle ep 02/13/25 02/13/25 (Aler-Cap) dulaglutide 0.75 mg/0.5 mL 0.75 mg subcut SA 02/13/25 02/13/25 subcutaneous pen injector (Trulicity) escitalopram oxalate 10 mg tablet 10 mg PO DAILY 02/1302/13/25 fesoterodine 4 mg tablet,extended 4 mg PO BID 02/13/25 02/13/25 release 24 hr lorazepam 0.5 mg tablet 0.5 - 1 mg PO Q6H PRN anxiet y 02/13/25 02/13/25 magnesium glycinate 100 mg (as 100 mg PO DAILY 5 02/13/25 glycinate) tablet (Mag Glycinate) metoprolol succinate 100 mg 100 mg PO QPM 02/13/2512/30 tablet,extended release 24 hr nitroglycerin 0.4 mg sublingual 0.4 mg sublingual Q5M PRN chest 02/13/25 02/13/25 tablet (Nitrostat) pain sacubitril 24 mg-valsartan 26 mg 1 tab PO BID 02/13/25 02/13/25 tablet (Entresto) sulfamethoxazole 800 1 tab PO BID 02/13/25 mg-trimethoprim 160 mg tablet (Bactrim DS) turmeric 400 mg capsule 500 mg PO DAILY 02/13/2512/30 zinc sulfate 50 mg zinc (220 mg) 50 mg PO DAILY 02/13/25 capsule (Zinc-220) Allergies Allergies Allergy/AdvReac Type Severity Reaction Status Date / Time ciprofloxacin (From Cipro) AdvReac Unknown Verified 02/13/25 04:41 PFS Active Problems All Active Problems (Updated 02/13/25 @ 13:38 by Nicole Bucio MD) Anxiety (Chronic) Paroxysmal atrial fibrillation (Chronic) Cardiomyopathy (Acute) Recent upper respiratory tract infection (Acute) Acute dyspnea (Acute) Acute exacerbation of CHF (congestive heart failure) (Acute) Kidney stones (Acute) Mixed incontinence urge and stress (Acute) Fractured medial malleolus (Acute) Right ureteral calculus (Acute) Diabetes mellitus with hyperglycemia (Acute) Urinary tract infection (Acute) Fall (Acute) Sepsis (Acute) Renal colic (Acute) Medical History Medical History (Updated 02/13/25 @ 13:38 by Nicole Bucio MD) Breast CA Social History Social History (Updated 02/13/25 @ 05:16 by Tara Mcdonald RN) Smoking Status: Unknown if ever smoked Do you dip or chew tobacco?: No Do you vape?: No Patient requests smoking cessation consult: No Initiate information on smoking cessation: No Level: Independent Do you feel safe in your home environment?: Yes History of physical, verbal, emotional, or financial abuse?: No Are you sexually active?: No POLST Patient has POLST: No Review of Systems Constitutional Reports: Fatigue, Malaise, Weakness and Poor appetite; Denies: Fever or Chills Eyes Denies: Pain, Irritation, Blurry vision, Vision loss or Diplopia Ears, nose, mouth, and throat Reports: Bleeding gums and Throat swelling; Denies: Ear pain, Hearing loss, Tinnitus, Nose bleeds or Nasal discharge Cardiovascular Reports: shortness of breath with exertion; Denies: Irregular heart rate, chest pain, palpitations, edema or Syncope Respiratory Reports: Shortness of breath, Cough, Orthopnea, SOB at rest, SOB with exertion and Chest congestion; Denies: Sputum production or Wheezing Gastrointestinal Denies: Abdominal pain, Abdominal distention, Nausea, Vomiting, Heartburn, Diarrhea or Constipation Genitourinary Denies: Painful urination, Urinary frequency or Urinary urgency Musculoskeletal Denies: Back pain, Extremity pain, Extremity swelling or Joint pain Integumentary/Breast Denies: Rash, Itching, Dryness, Redness or Skin pain Neurological Reports: General weakness; Denies: Headache, Weakness in extremities, Numbness in extremities, Abnormal gait or Dizziness Psychiatric Reports: Depression and Anxiety; Denies: Mood swings or Panic attacks Endocrine Reports: Fatigue; Denies: Excessive urination or Excessive thirst Allergic/Immunologic Reports: Throat swelling; Denies: Hives, Tongue swelling, Facial swelling or Wheezing Prior Level of Functionality: Independent of ADLs. Exam Exam Vital Signs: Vital Signs x48h Temp Pulse Pulse Resp BP BP Pulse Ox 02/13/25 10:02 72 143/77 H 92 02/13/25 10:01 98.6 F 80 18 125/78 95 02/13/25 08:39 76 121/66 93 02/13/25 08:00 88 132/85 H 94 02/13/25 06:09 87 20 148/86 H 92 Constitutional normal general appearance, no apparent distress, average body habitus, no limitations and level of alertness abnormal (lethargic) (sleepy) [facility] norm[facility], head/scalp atraumatic and hearing grossly normal bilaterally Eyes PERRL, EOMs intact bilaterally and conjunctivae normal Chest inspection of chest normal Respiratory breath sounds equal bilaterally and normal respiratory effort Bibasilar crackles noted. Cardiovascular normal heart rate noted, regular rhythm noted, no gallop, no rub and no murmur Gastrointestinal abdomen normal to inspection, abdomen soft to palpation, nontender to palpation and normoactive bowel sounds Extremities normal to inspection, normal to palpation, no tenderness and full ROM Neurology no movement abnormality noted and no focal motor deficit noted Psychiatry mental status grossly normal, oriented x3, thought process normal, cooperative and affect normal Skin skin color normal, no rash, no lesions and no wounds Conclusion/Plan Problem List (1) Acute exacerbation of CHF (congestive heart failure): Qualifiers: Heart failure type: unspecified Qualified Code(s): I50.9 - Heart failure, unspecified (2) Acute dyspnea: (3) Recent upper respiratory tract infection: Plan: The following is the plan for the above three diagnoses: Patient presents for acutely worsening shortness of breath. She states it started about 3 days ago, and has progressively gotten worse. She endorses paroxysmal nocturnal dyspnea, difficulty lying flat, difficulty with activity. She was being treated for bronchitis and a UTI, and had completed a course of antibiotics for both of those. She does not endorse any increase in her fluid intake or increase in dietary salt intake. Her circus agent is Dr. Soliz in [place], and she last saw him 2 days ago. proBNP [place] 3446. Chest CT shows cardiomegaly and bilateral pleural effusions with bibasilar atelectasis. She is not on Lasix in the outpatient. Currently tachypneic with respiratory rate between 18-20. Remains on room air but oxygen saturations between 92 to 93%. Continue diuresis with IV Lasix 20 mg twice daily. Continue cardiac diet, strict ins and outs, as well as fluid restriction of 1800 cc. Repeat ECHO was completed: EF is severely decreased at 20%, right ventricular systolic function is moderately decreased, there is moderate mitral regurgitation as well. She is not sure what her ejection fraction was prior to this, but records have been requested. She will need close follow-up with cardiology for further ischemic workup, and likely AICD placement as well. (4) Diabetes mellitus with hyperglycemia: Plan: Continue patient's home insulin, glargine 20 units daily. Also continue low- dose sliding scale. Carb controlled diet as well as a cardiac diet has been ordered. 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 Continue home metoprolol, Entresto, statin. Qualifiers: Heart failure chronicity: acute on chronic Heart failure type: u nspecified Qualified Code(s): I50.9 - Heart failure, unspecified (6) Paroxysmal atrial fibrillation: Plan: Continue Eliquis. (7) Anxiety: Plan: Patient has had a difficult year with the passing of her in April, after over 50 years of marriage. She has had to move because of this. Continue Lexapro. Continue Ativan as needed. Lab Results Lab results reviewed: Yes 02/13/25 05:08 02/13/25 08:34 Diagnostic Imaging Results Diagnostic Imaging Results: positive Final report reviewed EKG Results EKG Interpreted Independently: Yes Core Measures Anticipated LOS I expect patient to be DC'd or transferred within 96 hours.: Yes DVT/VTE - Prophylaxis VTE/DVT Device ordered at admit?: No Not Ordered - Medical Reason: Not indicated VTE/DVT Prophylaxis med ordered at admit?: Yes Stroke - Rehab Assessment Rehab services assessment to be ordered?: No Not Ordered - Medical Reason: Not indicated AMI - Statin at Admit Aspirin Prescribed on Admit: No Not Ordered - Medical Reason: Not indicated
[2025-02-13] MEDS: INSULIN LISPRO 300 UNIT/3 ML PEN SUBQ SCH ×2 (12:14→21:02)
[2025-02-13] MEDS: SODIUM CHLORIDE FLUSH 0.9% 10 ML SYRINGE IVP SCH (12:14)
[2025-02-13] MEDS: INSULIN GLARGINE-YFGN 300 UNIT/3 ML PEN SUBQ SCH (12:17)
--- NOTE | 2025-02-13 12:23 | ECHO Report ---
Version: 1 Study ID: [id number] [id number] Adult Echocardiogram Report Name: LEONEL CAMPOS Study Date: 02/13/2025, 9: 09 AM BP: 121 / 66 mmHg Patient Location: [id number] HR: 87 bpm : 1945 (MM/DD/YYYY) Gender: Female Height: 67 in Age: 79 Years Weight: 155 lb BSA: 1.81 m² Reason For Study: SAMIRA History: History of Cardiac stent, Chemo >20 years ago. Previous study 11/17/2013-Tech. difficult study with EF normal (no EF percent given) Small Pericardial effusion, No significant valve disease. Interpretation Summary The left ventricle is mildly dilated. Global left ventricular systolic function is severely decreased at 20 %. The calculated ejection fraction, as determined by the biplane method of disks, is 20%. The right ventricular systolic function is moderately decreased. There is moderate mitral regurgitation. The ascending aorta is mildly dilated with moderate AI. Left Ventricle: The left ventricle is mildly dilated. There is normal left ventricular wall thickness. No thrombus seen in the left ventricle. Global left ventricular systolic function is severely decreased. The calculated ejection fraction, as determined by the biplane method of disks, is 20%. Right Ventricle: The right ventricle is normal size. TAPSE is consistent with decreased right ventricular function. The tricuspid annular plane systolic excursion (TAPSE) measurement is 1.0 cm. The right ventricular systolic function is moderately decreased. Aortic Valve: The aortic valve is moderately calcified. The aortic valve is trileaflet. No hemodynamically significant valvular aortic stenosis. Moderate aortic regurgitation is present. Mitral Valve: The mitral valve leaflets are mildly thickened. Moderate mitral annular calcification is present. No evidence of mitral stenosis is seen. There is moderate mitral regurgitation. Tricuspid Valve: The tricuspid valve is normal in structure and function. There is no tricuspid stenosis. Mild tricuspid regurgitation present. Pulmonic Valve: The pulmonic valve is normal in structure and function. There is no pulmonic valvular stenosis. Mild pulmonic valvular regurgitation is present. Left Atrium: The left atrium is moderately dilated. Right Atrium: The right atrium is mildly dilated. The inferior vena cava appears normal. Atrial Septum: The interatrial septum appears normal, without evidence of shunt by 2D imaging and color Doppler. Aorta: The ascending aorta is mildly dilated. The diameter of the ascending aorta is 3.9 cm. The aortic arch is not well seen. The sinuses of Valsalva are normal in size. Pulmonary Artery: The pulmonary artery is normal size. The pulmonary artery systolic pressure is normal. Inferior vena cava dynamics indicate normal right atrial pressures. The right ventricular systolic pressure is 35mmHg. Pericardium/Pleural Space: A trace pericardial effusion is present. There is no evidence for hemodynamic compromise. A left pleural effusion is present. Left Ventricle IVSd: 0.94 cm LVIDd: 5.7 cm LVPWd: 1.11 cm LVIDs: 5.4 cm EDV(MOD-sp4): 123.5 ml LVLd ap4: 8.9 cm ESV(MOD-sp4): 61.8 ml ESV(sp4-el): 82.6 ml LVLs ap4: 8.7 cm EDV(MOD-sp2): 169.3 ml ESV(MOD-sp2): 93.2 ml Right Ventricle TAPSE: 0.95 cm RV S Nael: 10.0 cm/sec Atria LA dimension: 6.5 cm LAV(MOD-sp4): 109.9 ml LAV(MOD-sp2): 106.6 ml Diastolic Function MV dec time: 0.16 sec MV E max nael: 117.2 cm/sec MV A max nael: 48.6 cm/sec Aortic Valve LVOT diam: 1.92 cm AI max nael: 419.5 cm/sec AI max P.4 mmHg LV V1 mean P.98 mmHg LV V1 mean: 45.9 cm/sec LV V1 VTI: 12.6 cm Ao V2 VTI: 22.9 cm Ao mean P.2 mmHg Ao V2 mean: 83.7 cm/sec LV V1 max: 66.5 cm/sec LV V1 max P.77 mmHg Ao max P.6 mmHg Ao V2 max: 118.8 cm/sec Mitral Valve MV max P.7 mmHg MV V2 max: 129.0 cm/sec MV mean P.46 mmHg MV V2 mean: 70.1 cm/sec MV V2 VTI: 27.0 cm Tricuspid Valve TR max P.4 mmHg TR max nael: 284.8 cm/sec TV max P.4 mmHg Aorta Ao root diam: 2.8 cm MMode/2D Measurements & Calculations Ao root diam: 2.8 cm BMI: 24.3 kilograms/m² BSA([facility]): 1.83 m² EDV(MOD-sp2): 169.3 ml EDV(MOD-sp4): 123.5 ml ESV(MOD-sp2): 93.2 ml ESV(MOD-sp4): 61.8 ml ESV(sp4-el): 82.6 ml IVSd: 0.94 cm LA A4C-A/L: 23.7 cm² LA dimension: 6.5 cm LA ESV-A/L: 69.9 ml LA Vol Index: 20.1 ml/m² LAV(MOD-sp2): 106.6 ml LAV(MOD-sp4): 109.9 ml LVIDd: 5.7 cm LVIDs: 5.4 cm LVLd ap4: 8.9 cm LVLs ap4: 8.7 cm LVOT diam: 1.92 cm LVPWd: 1.11 cm RA A4Cs: 17.0 cm² TAPSE: 0.95 cm Doppler Measurements & Calculations AI max P.4 mmHg AI max nael: 419.5 cm/sec Ao max P.6 mmHg Ao mean P.2 mmHg Ao V2 max: 118.8 cm/sec Ao V2 mean: 83.7 cm/sec Ao V2 VTI: 22.9 cm Lat E/e': 11.5 LV V1 max: 66.5 cm/sec LV V1 max P.77 mmHg LV V1 mean: 45.9 cm/sec LV V1 mean P.98 mmHg LV V1 VTI: 12.6 cm Med E/e': 30.0 MV A max nael: 48.6 cm/sec MV dec time: 0.16 sec MV DVI-pr: 2.41 MV E max nael: 117.2 cm/sec MV max P.7 mmHg MV mean P.46 mmHg MV V2 max: 129.0 cm/sec MV V2 mean: 70.1 cm/sec MV V2 VTI: 27.0 cm PA max P.21 mmHg PA V2 max: 54.9 cm/sec RV S Nael: 10.0 cm/sec TR max P.4 mmHg TR max nael: 284.8 cm/sec TV max P.4 mmHg Other Measurements & Calculations Ao root area: 6.3 cm² NATE(I,D): 1.59 cm² NATE(V,D): 1.62 cm² EDV(Teich): 157.2 ml EF(MOD-sp2): 44.9 % EF(MOD-sp4): 50.0 % EF(sp-el): 41.0 % EF(Teich): 11.3 % ESV(Teich): 139.4 ml FS: 5.1 % LVOT area: 2.9 cm² MV E/A: 2.41 MVA(VTI): 1.35 cm² SV(LVOT): 36.5 ml SV(MOD-sp4): 61.8 ml MD Shelbi Morrison 02/13/2025, 12: 22 PM Ordering Physician: Nicole Bucio Referring Physician: Shayne Daniels Performed By: JAJA
[2025-02-13] MEDS: FUROSEMIDE 20 MG/2 ML VIAL IVP SCH (14:03)
[2025-02-13] MEDS: ACETAMINOPHEN 325 MG TABLET PO PRN (15:44)
[2025-02-13] MEDS: METOPROLOL SUCCINATE 50 MG TABLET PO SCH (20:53)
[2025-02-13] MEDS: APIXABAN 5 MG TABLET PO SCH (20:53)
[2025-02-13] MEDS: PRAVASTATIN 10 MG TABLET PO SCH (20:54)
[2025-02-13] MEDS: SOLIFENACIN SUCCINATE 5 MG TABLET PO SCH (20:54)
[2025-02-14] MEDS: ONDANSETRON 4 MG/2 ML VIAL IVP PRN (04:30)
[2025-02-14 04:32] VITALS: TEMP 98.1
[2025-02-14 04:57] LABS: HCT - HEMATOCRIT 38.7 % (37.0-47.0); HGB - HEMOGLOBIN 12.8 g/dL (12.0-16.0); MEAN PLATELET VOLUME 10.5 fL (7.9-10.8); PLT - PLATELET COUNT 300.0 10^3/uL (130-450); RED CELL DISTRIBUTION WIDTH 14.2 % (12.0-15.0)
[2025-02-14 05:15] LABS: ALT ALANINE AMINOTRANSFERASE 15.0 IU/L (10-60); AST ASPARTATE AMINOTRANSFERASE 11.0 IU/L (10-42); BUN - BLOOD UREA NITROGEN 19.0 mg/dL (6-20); CARBON DIOXIDE - CO2 28.0 mmol/L (21-32); CREATININE 0.8 mg/dL (0.6-1.3); GFR - MDRD 69.0 (>89)
[2025-02-14] MEDS: ESCITALOPRAM 10 MG TABLET PO SCH (09:08)
[2025-02-14] MEDS: MAGNESIUM OXIDE 400 MG TABLET PO SCH (09:08)
[2025-02-14] MEDS: CHOLECALCIFEROL 5,000 UNIT CAPSULE PO SCH (09:08)
--- NOTE | 2025-02-14 09:19 | Discharge Summary ---
"Discharge Summary Admit Date: 02/13/25 Discharge Date: 02/14/25 Discharging Provider: Dr. Nicole Bucio Primary Care Provider: Sebastián Mathew Code Status: Attempt Resuscitation Discharge Facility Name: Home, self care DIAGNOSES Discharge Diagnoses with Status of Each Condition: Acute exacerbation of CHF, acute dyspnea, recent upper respiratory tract infectionpatient presented for acutely worsening shortness of breath. She received 2 doses of IV Lasix here with improvement of her breathing. proBNP was elevated, chest CT showed cardiomegaly and bilateral pleural effusions. She was not on Lasix in the outpatient setting. Advised to continue oral Lasix 40 mg daily for the next 14 days and follow-up closely with her casing running machine tender. Her repeat echo did show an EF that was severely decreased at 20%, right ventricular systolic function being moderately decreased, as well as moderate mitral regurgitation. She believes her last EF was around here. She follows up with Dr. Soliz in [place] for cardiology. Advised to make an appointment in the next 1 to 2 weeks to discuss these results, as she may likely need a AICD placement if this is persistent. For GDMT, she is on metoprolol and Entresto. Advised to follow-up with cardiology to add HAKEEM/ARB or spironolactone as well. Diabetes mellitus with hyperglycemiacontinue home regimen of glargine 20 units daily, as well as a injectable GLP 1. Paroxysmal atrial fibrillationcontinue Eliquis. Anxietycontinue home Lexapro and Ativan as needed. HPI History of Present Illness: Patient is a 79-year-old female with a history of congestive heart failure unknown ejection fraction who presents with worsening shortness of breath. Per patient, in the last couple weeks, she has been dealing with bronchitis and a urinary tract infection. She has had a persistent cough with minimal sputum production. She received antibiotics for both of the above, and was initially having some improvement. However, for the past 3 days, she has noted a marked decline in her respiratory status. She is having difficulty breathing. She states that she has not slept for the past 2-3 nights because every time she lies down, she cannot catch her breath. She is unsure if she has gained any weight, does not weigh herself daily. States that she does not eat much daily, but does enjoy a turkey roast. She has not had any other sandwich meats, does not eat a high salt diet, and has not been drinking more water or fluids in the last few days. She has a history of congestive heart failure, and endorses a cardiac catheterization with stent placement in the recent past. She sees a casing running machine tender, Dr. Soliz in [place]. She states the last time she saw them was about 2 weeks ago. She does not know what her ejection fraction is. She states she is on Eliquis for paroxysmal atrial fibrillation. Past medical history includes congestive heart failure, unknown ejection fraction, hypertension, hyperlipidemia, depression with recent panic attacks, and insulin-dependent diabetes mellitus, breast cancer in remission for over 10 years. Medications include Lexapro, Eliquis, insulin glargine, Entresto, pravastatin, metoprolol. She has no known drug allergies, but does not like to take ciprofloxacin, reason unknown. She has had a hysterectomy, cardiac catheterization, lymph node removal. She denies any alcohol use. She smoked very briefly in her 20s. She denies any recreational drug use. She lost her in April of this year, and has had a lot of difficulty with dealing with this grief. She is notably depressed. She otherwise ambulates independently, does not use any assistive devices. Her DPOA her next of kin would be a friend that lives in [facility]. Her closest family members, although she does not specify who are in [place]. 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 CODE STATUS was discussed, and patient would like to be a full code. CONSULTS | PROCEDURES Consultations: RT Procedures: Chest CT11/9cardiomegaly, bilateral pleural effusions, bibasilar atelectasis. [id number] is severely decreased at 20%, right systolic function is moderately decreased, moderate mitral regurgitation as well. HOSPITAL COURSE Hospital Course: Patient is a 79-year-old female with a history of heart failure with unknown ejection fraction on presentation who had continued shortness of breath. She was recently being treated for bronchitis as well as a pneumonia, but the shortness of breath had worsened. When she got here, her proBNP was elevated to 3000. CT chest shows bilateral pleural effusions, cardiomegaly, as well as some interstitial edema. She was started on diuresis, and had good urine output overnight. Her dyspnea, tachypnea improved. Her echo did reveal severely reduced ejection fraction of 20%, as well as moderately reduced right ventricular function, as well as moderate mitral regurgitation. She follows up closely with the casing running machine tender in [place], Dr. Soliz. She was advised to make an appointment in the next 1 to 2 weeks. Likely, she will need an AICD placed, and should be on further GDMT including an HAKEEM/ARB, as well as spironolactone. She will like to see her casing running machine tender prior to initiation of these medications. She was discharged home with 2 weeks of oral Lasix. She was advised to continue to weigh herself daily, maintain a low-salt diet, as well as a fluid restriction of 2 L or less a day. She needs close follow-up with PCP and cardiology. Oxygen desaturation study was completed and patient does not require home oxygen. She was discharged home in stable condition. ALLERGIES Allergies Allergy/AdvReac Type Severity Reaction Status Date / Time ciprofloxacin (From Cipro) AdvReac Unknown Verified 02/13/25 04:41 MEDICATIONS Ambulatory Orders Medication Instructions Recorded Confirmed apixaban 5 mg tablet (Eliquis) 5 mg PO BID 12/17/21 insulin glargine U-300 conc 300 20 unit subcut DAILY 0 12/17/21 02/13/25 unit/mL (1.5 mL) subcutaneous pen ([employer] SoloStar U-300 Insulin) pravastatin 20 mg tablet 20 mg PO QPM 12/17/21 saxagliptin 5 mg tablet (Onglyza) 5 mg PO DAILY 02/13/25 biotin 2,500 mcg capsule 2,500 mcg PO DAILY 02/13/25 02/13/25 cholecalciferol (vitamin D3) 125 125 mcg PO DAILY 12/3002/13/25 mcg (5,000 unit) capsule diphenhydramine HCl 25 mg capsule 25 mg PO QPM PRN sle ep 02/13/25 02/13/25 (Aler-Cap) dulaglutide 0.75 mg/0.5 mL 0.75 mg subcut SA 02/13/25 02/13/25 subcutaneous pen [facility]or ([facility]) escitalopram oxalate 10 mg tablet 10 mg PO DAILY 02/1302/13/25 fesoterodine 4 mg tablet,extended 4 mg PO BID 02/13/25 02/13/25 release 24 hr lorazepam 0.5 mg tablet 0.5 - 1 mg PO Q6H PRN anxiet y 02/13/25 02/13/25 magnesium glycinate 100 mg (as 100 mg PO DAILY 5 02/13/25 glycinate) tablet (Mag Glycinate) metoprolol succinate 100 mg 100 mg PO QPM 02/13/2512/30 tablet,extended release 24 hr nitroglycerin 0.4 mg sublingual 0.4 mg sublingual Q5M PRN chest 02/13/25 02/13/25 tablet (Nitrostat) pain sacubitril 24 mg-valsartan 26 mg 1 tab PO BID 02/13/25 02/13/25 tablet (Entresto) sulfamethoxazole 800 1 tab PO BID 02/13/25 mg-trimethoprim 160 mg tablet (Bactrim DS) turmeric 400 mg capsule 500 mg PO DAILY 02/13/2512/30 zinc sulfate 50 mg zinc (220 mg) 50 mg PO DAILY 02/13/25 capsule (Zinc-220) furosemide 40 mg tablet (Lasix) 40 mg PO DAILY #14 tab s 02/14/25 PHYSICAL EXAM AT DISCHARGE Vital Signs: Vital Signs x48h Temp Pulse Resp BP Pulse Ox 02/14/25 10:25 98.1 F 72 16 108/54 L 93 02/14/25 09:00 98.1 F 67 16 103/50 L 93 Physical Exam Other/Comments: Constitutional normal general appearance, no apparent distress, average body habitus, no limitations, alert [facility] norm[facility]cephalic, head/scalp atraumatic and hearing grossly normal bilaterally Eyes PERRL, EOMs intact bilaterally and conjunctivae normal Chest inspection of chest normal Respiratory breath sounds equal bilaterally and normal respiratory effort Cardiovascular normal heart rate noted, regular rhythm noted, no gallop, no rub and no murmur Gastrointestinal abdomen normal to inspection, abdomen soft to palpation, nontender to palpation and normoactive bowel sounds Extremities normal to inspection, normal to palpation, no tenderness and full ROM Neurology no movement abnormality noted and no focal motor deficit noted Psychiatry mental status grossly normal, oriented x3, thought process normal, cooperative and affect normal Skin skin color normal, no rash, no lesions and no wounds LABS 02/14/25 04:21 02/14/25 04:21 DIAGNOSTIC IMAGING Diagnostic Imaging Results: Final report reviewed FOLLOW UP Follow Up: Follow-up with primary care provider. Follow-up with cardiology. TIME SPENT Time Spent in Discharge (Minutes): 35 Discharge Plan Discharge Patient Disposition: Home, Self Care Condition: Stable Prescriptions: New furosemide [Lasix] 40 mg tablet 40 mg PO DAILY Qty: 14 0RF Continued pravastatin 20 MG tablet 20 mg PO QPM saxagliptin [Onglyza] 5 MG tablet 5 mg PO DAILY Eliquis 5 MG tablet 5 mg PO BID insulin glargine U-300 conc [[employer] SoloStar U-300 Insulin] 300 UNIT/ML insulin pen 20 unit subcut DAILY Rx Instructions: As directed metoprolol succinate 100 mg tablet extended release 24 hr 100 mg PO QPM lorazepam 0.5 mg tablet 0.5 - 1 mg PO Q6H PRN (Reason: anxiety) escitalopram oxalate 10 mg tablet 10 mg PO DAILY Patient Comments: TAKE ONE TABLET BY MOUTH EVERY MORNING fesoterodine 4 mg tablet extended release 24 hr 4 mg PO BID sacubitril-valsartan [Entresto] 24-26 mg tablet 1 tab PO BID Trulicity 0.75 mg/0.5 mL pen injector 0.75 mg SUBCUT SA Mag Glycinate 100 mg tablet 100 mg PO DAILY sulfamethoxazole-trimethoprim [Bactrim DS] 800-160 mg tablet 1 tab PO BID Rx Instructions: started 02/12/25 diphenhydramine HCl [Aler-Cap] 25 mg capsule 25 mg PO QPM PRN (Reason: sleep) nitroglycerin [Nitrostat] 0.4 mg tablet, sublingual 0.4 mg sublingual Q5M PRN (Reason: chest pain) Rx Instructions: do not exceed 3 doses per episode zinc sulfate [Zinc-220] 50 mg zinc (220 mg) capsule 50 mg PO DAILY cholecalciferol (vitamin D3) 125 mcg (5,000 unit) capsule 125 mcg PO DAILY turmeric 400 mg capsule 500 mg PO DAILY biotin 2,500 mcg capsule 2,500 mcg PO DAILY Diet: Cardiac Interventions: Belongings Inventory Last Done: 02/13/25 12:45 Discharge Last Done: 02/14/25 10:53 Discharge Checklist - Nursing Last Done: 02/14/25 10:53 Health Concerns: You are being discharged after treatment for worsening heart failure. Please follow these instructions carefully to help keep you healthy and avoid another hospital stay. - Resume light activities as tolerated. Avoid strenuous exercise until cleared by your doctor. - Rest as needed, but try to stay active with gentle walking or daily movement. Diet - Follow a low-salt (sodium) diet. Avoid processed foods, canned soups, and salty snacks. - Limit fluid intake to about 2 liters (64 ounces) per day. - Weigh yourself every morning, after using the bathroom and before eating, using the same scale. Medications - Take all medications exactly as prescribed. Do not skip doses. - I am sending you home with Lasix which I want you to take once a day. This is a water pill, and will help get rid of the some excess fluid. I am only prescribing a 14-day supply. After this, I would like you to follow-up with your casing running machine tender. I understand that you see them pretty regularly. As we talked about, because you believe your ejection fraction has been this way in the past, you need very close follow-up with your casing running machine tender, as it is low. We discussed the possibility of AICD, and he will continue this discussion with you. Please call him and make sure that he is aware that you were admitted for an exacerbation. He can request records of the recent echocardiogram that was performed here as well. - If you have questions or side effects, contact your healthcare provider before making any changes. Monitoring and When to Call - Watch for signs of fluid buildup: sudden weight gain (more than 2-3 pounds in a day or 5 pounds in a week), swelling in your legs or belly, trouble breathing, or increased fatigue. - If you notice these symptoms, call your doctor or heart failure nurse right away. You may need a change in your diuretic dose or other treatment. - Keep a daily log of your weight, blood pressure, and symptoms. Follow-Up - Schedule a follow-up appointment with your heart failure team or primary care provider within 7 days of discharge. - Bring your medication list and symptom log to every visit. - Early follow-up helps catch problems early and allows for medication adjustments. Other Recommendations - Cardiac rehabilitation may be recommended to help you recover and improve your heart health. - If you have questions about your care, medications, or need support, contact your care team. Social workers, pharmacists, and nurses are available to help. Remember: Taking your medications, following your diet, monitoring your symptoms, and keeping your appointments are the best ways to stay healthy and avoid another hospital stay. Print Language: Mosotho Patient Instructions: Heart Failure Stand Alone Forms: PCP List Follow-up Care: Sebastián Mathew MD [Primary Care Provider, General [employer] Worker] Vitals documented within 30 minutes of discharge?: Yes"
[2025-02-14 09:21] VITALS: O2SAT 93
[2025-02-14 10:58] VITALS: BP 108/54
== END 2025-02-14 10:35 | disposition home or self-care (01) ==
LOC: MS3 04:30 → ED 04:30 → MS3 10:02
PROVIDERS: ADMIT Internal Medicine; ATTEND Internal Medicine
DX: Z87.440 Personal history of urinary (tract) infections; E11.65 Type 2 diabetes mellitus with hyperglycemia; I11.0 Hypertensive heart disease with heart failure; Z85.3 Personal history of malignant neoplasm of breast; Z95.5 Presence of coronary angioplasty implant and graft; F32.A Depression, unspecified; Z79.01 Long term (current) use of anticoagulants; I34.0 Nonrheumatic mitral (valve) insufficiency; E78.5 Hyperlipidemia, unspecified; I48.0 Paroxysmal atrial fibrillation; F41.9 Anxiety disorder, unspecified; Z87.891 Personal history of nicotine dependence; J90 Pleural effusion, not elsewhere classified; I50.23 Acute on chronic systolic (congestive) heart failure; I42.9 Cardiomyopathy, unspecified; Z79.4 Long term (current) use of insulin; J06.9 Acute upper respiratory infection, unspecified